=== PATIENT | male | born 1950 | race Caucasian/White ===

== ENCOUNTER → 2016-07-09 | Outpatient (CLI) | payer BC ==
[~2016-07-09] MED LIST: ALBUAER INH; BUPR-83 PO; BUPR100T13 PO; CHOL1000 PO; CYAN500T13 PO; FLUT0.15 NAE; IBUP-1459 PO; LATA0.5S OPB; MULTCAP33 PO; SYMIN160 INH; TRAM-10 PO; VITAMIN D PO; [UNRECOGNIZED DRUG - OTHER] PO
[2016-07-09 17:40] LABS: BASO % 1.5 %; BASO ABS # 0.11 K/uL (0-0.2); COMPLETE YES; EOS % 5.1 %; HEMATOCRIT 48.1 % (42-52); IG% 0.4 %; LYMPH % 32.6 %; LYMPH ABS # 2.38 K/uL (1.2-3.4); MEAN CELL VOLUME 94.5 fL (80-100); MEAN CORPUSCULAR HGB CONC 32.8 g/dl (32-36); MEAN PLATELET VOLUME 9.5 fL (7.4-10.4); MONO % 17.5 %; NEUT % 42.9 %; PLATELET COUNT 312 K/uL (130-400); RED BLOOD COUNT 5.09 M/uL (4.7-6.1); WHITE BLOOD COUNT 7.31 K/uL (4.8-10.8)
== END | disposition home or self-care (01) ==
LOC: C.LABPVFM 15:47
PROVIDERS: ATTEND Family Medicine
DX: R59.1 Generalized enlarged lymph nodes (principal)

== ENCOUNTER → 2016-07-15 | Outpatient (CLI) | payer BC ==
--- NOTE | 2016-07-15 14:23 | DIAGNOSTIC IMAGING REPORT ---
RIGHT NECK ULTRASONOGRAPHY CLINICAL HISTORY: R59.1 [id number] COMPARISON STUDY: No previous studies for comparison. FINDINGS: There is a 15 x 9 x 7 mm slightly hyperechoic ovoid nodule within the right lateral neck at the C1 level. This likely represents either a lipoma or lymph node. There are no other findings of significance. IMPRESSION: 15 x 9 x 7 mm lymph node versus lipoma within the right lateral neck at the C1 level Electronically signed by: Valerio Wright M.D. 07/15/2016 2:22 PM Dictated Date/Time: 07/15/2016 2:21 PM
== END | disposition home or self-care (01) ==
LOC: C.ULTR 13:54
PROVIDERS: ATTEND Family Medicine
DX: R59.1 Generalized enlarged lymph nodes (principal)

== ENCOUNTER → 2016-07-25 | Outpatient (CLI) | payer BC | END | disposition home or self-care (01) | LOC: C.PATH 07:59 | PROVIDERS: ATTEND Family Medicine | DX: D17.39 Benign lipomatous neoplasm of skin and subcutaneous tissue of other sites (principal) ==

== ENCOUNTER 2016-09-14 20:02 | Emergency (ER) | payer BC ==
[~2016-09-14] VITALS: Ht 170.2 cm; Wt 101.3 kg
[~2016-09-14 20:02] MED LIST changes: -BUPR100T13 PO; -CHOL1000 PO; -CYAN500T13 PO; -IBUP-1459 PO; -LATA0.5S OPB; -MULTCAP33 PO; -TRAM-10 PO
[2016-09-14 20:07] VITALS: Ht 170.2 cm; Wt 101.3 kg
[2016-09-14] MEDS ORDERED: MULTCAP33 PO (20:45)
[2016-09-14] MEDS ORDERED: TRAM-10 PO (20:45)
[2016-09-14] MEDS ORDERED: BUPR100T13 PO (20:45)
[2016-09-14] MEDS ORDERED: IBUP-1459 PO (20:45)
[2016-09-14] MEDS ORDERED: CYAN500T13 PO (20:45)
[2016-09-14] MEDS ORDERED: LATA0.5S OPB (20:45)
[2016-09-14] MEDS ORDERED: CHOL1000 PO (20:45)
--- NOTE | 2016-09-14 21:02 | DIAGNOSTIC IMAGING REPORT ---
RIGHT SHOULDER MIN 2 VIEWS ROUTINE CLINICAL HISTORY: Right shoulder pain s/p heavy lifting. COMPARISON: None FINDINGS: Alignment of the right shoulder is anatomic. There is no acute fracture. There is moderate osteoarthritis of the acromioclavicular joint and mild osteoarthritis of the glenohumeral joint. IMPRESSION: 1. No acute fracture or dislocation of the right shoulder. 2. Moderate osteoarthritis of the right acromioclavicular joint and mild osteoarthritis of the glenohumeral joint. Electronically signed by: Maurice Mcadams M.D. 09/14/2016 9:01 PM Dictated Date/Time: 09/14/2016 9:00 PM
--- NOTE | 2016-09-14 21:44 | EMERGENCY ROOM VISIT NOTE ---
History First contact with patient: 20:18 Chief Complaint: SHOULDER PAIN Stated Complaint: R SHOULDER PAIN History of Present Illness The patient is a 66 year old male who presents to the Emergency Room via private vehicle accompanied by with complaints of "right shoulder pain". The patient states that his right shoulder has been bothering him for the past 6 months, but notes that this past he manually removed 2 large loads of mulch. He states that later that evening his right shoulder pain worsen, and notes that it is progressively worsened since that time. He denies any chest pain, or worsening of his underlying shortness of breath. He is taken 2 ibuprofen tablets to total 800mg, and 10 mg of tramadol. He is also having one muscle relaxer with minimal relief of his pain. Review of Systems A complete 6-point Review of Systems was discussed with the patient, with pertinent positives and negatives listed in the History of Present Illness. All remaining Review of Systems questions can be considered negative unless otherwise specified. Past Medical/Surgical History Previous shoulder injury opposites side. Family History No pertinent family history at this time. Social History Smoking Status: Former Smoker Marital Status: Occupation Status: employed Current/Historical Medications Scheduled Budesonide/Formoterol Fumarate (Symbicort 160/4.5 Inhaler ), 2 PUFFS INH BID Bupropion Hcl (Wellbutrin), 100 MG PO DAILY Cholecalciferol (Vitamin D3), 1,000 INTER.UNIT PO DAILY Cyanocobalamin (Vitamin B12 500MCG), 1,000 MCG PO DAILY Fluticasone Propionate (Nasal) (Flonase Allergy Relief), 2 SPRAYS MACKENZIE QAM Latanoprost (Xalatan 0.005% Oph Nicole), 1 DROP OPB HS Multiple Vitamins W/ Minerals (Preservision Areds), 1 CAP PO DAILY Scheduled PRN Albuterol Sulfate (Proventil Hfa), 2 PUFFS INH Q4H PRN for Shortness of Breath Ibuprofen (Motrin), 400 MG PO Q6H PRN for Pain Tramadol (Ultram), 50 MG PO Q6H PRN for Severe Pain Allergies Coded Allergies: Acetaminophen (Unverified Allergy, Unknown, rash, 05/06/16) Azithromycin (Unverified Allergy, Unknown, rash, 05/06/16) Benzonatate (Unverified Allergy, Unknown, rash, 05/06/16) Clindamycin (Unverified Allergy, Unknown, rash, 05/06/16) Codeine (Unverified Allergy, Unknown, rash, 05/06/16) Hydrocodone (Unverified Allergy, Unknown, rash, 05/06/16) Levofloxacin (Unverified Allergy, Unknown, rash, 05/06/16) Montelukast (Unverified Allergy, Unknown, rash, 05/06/16) Omeprazole (Unverified Allergy, Unknown, rash, 05/06/16) Oxycodone (Unverified Allergy, Unknown, rash, 05/06/16) Paroxetine (Unverified Allergy, Unknown, rash, 05/06/16) Physical Exam Vital Signs Date Time Temp Pulse Resp B/P (MAP) Pulse Ox O2 Delivery O2 Flow Rate FiO2 09/14/16 21:52 37.1 94 18 130/93 93 09/14/16 20:07 37.6 103 18 146/88 93 Room Air Physical Exam VITAL SIGNS - Vital signs and nursing notes were reviewed. Patient is afebrile , hypertensive at 146/88, sodium tachycardic at a rate of 102 bpm, and is saturating on room air 93%. GENERAL -66-year-old male appearing his stated age who is in no acute distress. Communicates well with provider and answers questions appropriately. SKIN - Without rashes. Skin overlying the right shoulder is unremarkable. EXTREMITIES - No clubbing or peripheral cyanosis. No pretibial edema present. There is minimal tenderness to palpation overlying the right shoulder. Patient is not able to actively abduct his right shoulder secondary to pain. Passive extension of the right shoulder is tender/painful for the patient. +5/5 strength noted in UE/LE bilaterally. He is neurovascularly intact in the right upper extremity. Medical Decision & Procedures ER Provider Diagnostic Interpretation: RIGHT SHOULDER MIN 2 VIEWS ROUTINE CLINICAL HISTORY: Right shoulder pain s/p heavy lifting. COMPARISON: None FINDINGS: Alignment of the right shoulder is anatomic. There is no acute fracture. There is moderate osteoarthritis of the acromioclavicular joint and mild osteoarthritis of the glenohumeral joint. IMPRESSION: 1. No acute fracture or dislocation of the right shoulder. 2. Moderate osteoarthritis of the right acromioclavicular joint and mild osteoarthritis of the glenohumeral joint. Electronically signed by: Maurice Mcadams M.D. 09/14/2016 9:01 PM Dictated Date/Time: 09/14/2016 9:00 PM Medical Decision Patient was seen and evaluated as above. After obtaining a thorough history and physical examination the decision was made to obtain a radiograph the patient's right shoulder. This is the patient's right shoulder, and the pain is reproducible with passive and active range of motion. I suspect underlying rotator cuff injury. Radiograph results above and are found to be negative. I do not suspect any underlying emergent etiology. Patient denies chest pain, or changing in his current shortness of breath due to his COPD. I did offer the patient pain medication however he has many allergies. Unfortunately provide him any pain medication here and he is not allergic to orally. I do not believe that intravenous pain medication in this scenario is warranted. He did request stronger prescription of tramadol, however given his underlying other medications to include bupropion I did not want to induce seizure. Patient was in agreement, and agreed use [id number] meds. I reviewed his previous creatinine from 2011 which was found to be subtly bumped. He states that he has blood work done every 6 months and no one has stated anything regarding abnormalities. I did caution him on the amount of ibuprofen he is taking as it can cause ulcers and kidney damage. He is to follow up with orthopedics regarding his injury. I believe he is stable for outpatient management. He was also seen by my attending. He'll be placed in an arm sling, was educated upon worrisome symptoms in which to return, had questions prior to discharge, and was discharged home in good condition. In the evaluation and treatment of this patient, the following differential diagnoses were considered: Shoulder Contusion, Shoulder Fracture, Shoulder Dislocation, Thoracic Outlet Syndrome, Adhesive Capsulitis, Rotator Cuff Tear, Proximal Clavicle Head Fracture, Apical Pneumonia, Pneumothorax, Hemothorax, or TB. Impression Primary Impression: Right shoulder pain Departure Information Dispostion Home / Self-Care Condition GOOD Referrals Angel Arellano M.D. (PCP) Dustin Prakash, DO Patient Instructions My [facility] Additional Instructions You have been treated in the Emergency Department for Shoulder Pain. For pain control, you can use the following [id number] medicines (if >12 yo): - Regular strength (325mg/tab) Tylenol (acetaminophen) 2 tabs every 4-6 hours as needed. Do not exceed 12 tablets in a 24 hour period. Avoid taking more than 3 grams (3000 mg) of Tylenol per day. This includes any other sources of acetaminophen you may take on a regular basis. - Regular strength (200 mg/tab) Advil (ibuprofen) 1-2 tabs every 4-6 hours as needed. Do not exceed a dose of 3200 mg per day. Please be very careful taking this medication as it can cause ulcers in the stomach and hurt the kidneys. If this is a recent injury (<24 hrs), ice can be applied to the area of pain for the first 3 days to help decrease pain and inflammation. You have been provided the number for an Orthopaedic Surgeon. You should call this number as soon as possible to establish a follow-up visit from today's Emergency Department visit. Keep the shoulder brace/sling in place until evaluated by Orthopedics. Continue to perform range of motion exercises several times per day to help prevent the development of a "frozen shoulder". Return to the Emergency Department if your current symptoms worsen despite treatment course outlined above, or if you develop any of the following symptoms : intractable pain despite aforementioned treatment course or new onset of numbness or tingling of the arm. Please return to the emergency department with any new/concerning symptoms.
[2016-09-14 21:52] VITALS: BP 130/93; PULSE 94; TEMP 37.1; O2SAT 93
== END 2016-09-14 21:50 | disposition home or self-care (01) ==
LOC: C.EDB 20:05 → C.EDD 21:50
DX: M25.511 Pain in right shoulder (principal); I10 Essential (primary) hypertension; R00.0 Tachycardia, unspecified; Z79.899 Other long term (current) drug therapy; Z87.891 Personal history of nicotine dependence; X50.9XXA Other and unspecified overexertion or strenuous movements or postures, initial encounter; Y93.H2 Activity, gardening and landscaping

== ENCOUNTER → 2017-06-30 | Outpatient (CLI) | payer OTHER ==
[~2017-06-30] MED LIST changes: +ACET-1256 PO; -ALBUAER INH; -BUPR-83 PO; +BUPR100T13 PO; +CHOL1000 PO; +CYAN500T13 PO; +IBUP-1459 PO; +LATA0.5S OPB; +MULTCAP33 PO; +TRAM-10 PO; -VITAMIN D PO; -[UNRECOGNIZED DRUG - OTHER] PO
--- NOTE | 2017-06-30 14:06 | DIAGNOSTIC IMAGING REPORT ---
CHEST 2 VIEWS ROUTINE CLINICAL HISTORY: BRONCHITIS dyspnea COMPARISON STUDY: 07/10/2015 FINDINGS: Mild stable cardia megaly. Slight interstitial and peribronchial prominence of the mid to lower lung regions bilaterally. No evidence for consolidative infiltrate. IMPRESSION: Mild basilar bronchitis. The above report was generated using voice recognition software. It may contain grammatical, syntax or spelling errors. Electronically signed by: Gian Huitron M.D. 06/30/2017 2:04 PM Dictated Date/Time: 06/30/2017 2:03 PM
[2017-06-30 14:41] LABS: BASO % 0.7 %; BASO ABS # 0.06 K/uL (0-0.2); EOS % 4.6 %; EOS ABS # 0.38 K/uL (0-0.5); HEMOGLOBIN 15.5 g/dL (14.0-18.0); MEAN CORPUSCULAR HEMOGLOBIN 31.7 pg (25-34); MEAN CORPUSCULAR HGB CONC 34.4 g/dl (32-36); MONO % 14.7 %; MONO ABS # 1.21 K/uL (0.11-0.59); NEUT % 50.8 %; NEUT ABS # 4.16 K/uL (1.4-6.5); PLATELET COUNT 326 K/uL (130-400); RED CELL DISTRIBUTION WIDTH CV 13.4 % (11.5-14.5); RED CELL DISTRIBUTION WIDTH SD 44.7 fL (36.4-46.3); WHITE BLOOD COUNT 8.21 K/uL (4.8-10.8)
[2017-06-30 15:19] LABS: ALBUMIN 3.4 gm/dl (3.4-5.0); ALT/SGPT 75 U/L (12-78); AST/SGOT 34 U/L (15-37); BLOOD UREA NITROGEN 12 mg/dl (7-18); CALCIUM 8.3 mg/dl (8.5-10.1); CARBON DIOXIDE 27 mmol/L (21-32); CREATININE 1.09 mg/dl (0.60-1.40); GLUCOSE 91 mg/dl (70-99); SODIUM 137 mmol/L (136-145)
[2017-06-30 15:28] LABS: ALKALINE PHOSPHATASE 84 U/L (45-117); TOTAL PROTEIN 6.9 gm/dl (6.4-8.2)
== END | disposition home or self-care (01) ==
LOC: C.RAD1850 13:38
PROVIDERS: ATTEND Internal Medicine Pulmonary Disease
DX: J20.9 Acute bronchitis, unspecified (principal); J30.89 Other allergic rhinitis; J30.1 Allergic rhinitis due to pollen; J15.9 Unspecified bacterial pneumonia

== ENCOUNTER → 2017-07-04 | Outpatient (CLI) | payer OTHER ==
[2017-07-02 13:51] LABS: ALBUMIN 3.7 gm/dl (3.4-5.0); BLOOD UREA NITROGEN 12 mg/dl (7-18); CALCIUM 8.7 mg/dl (8.5-10.1); CARBON DIOXIDE 27 mmol/L (21-32); CREATININE 1.14 mg/dl (0.60-1.40); GLUCOSE 104 mg/dl (70-99); PHOSPHORUS 2.4 mg/dl (2.5-4.9); POTASSIUM 4.1 mmol/L (3.5-5.1); SODIUM 141 mmol/L (136-145)
[~2017-07-04] MED LIST changes: +OPTIRAY 320 IV PRN
--- NOTE | 2017-07-04 08:15 | DIAGNOSTIC IMAGING REPORT ---
CT ABD/PELVIS IV AND ORAL CONT CLINICAL HISTORY: CHANGE IN BOWEL HABIT COMPARISON STUDY: 08/01/2006 TECHNIQUE: Following the IV administration of 94 mL of Optiray-320, CT scan of the abdomen and pelvis was performed from the lung bases to the proximal femurs. Images are reviewed in the axial, sagittal, and coronal planes. IV contrast was administered without complication. A dose lowering technique was utilized adhering to the principles of ALARA. CT DOSE: 961.15 mGycm FINDINGS: Lower chest: On the superiormost images, there is partial visualization of prominent paraesophageal lymph nodes versus vascular structures. This unfortunately cannot be further characterized as the finding is not fully included on the study.. There are no pleural effusions. There is no basilar lung consolidation Liver: There is mild hepatic steatosis. No focal masses are visualized. The portal vein is patent. Gallbladder: Unremarkable. Spleen: Normal in size and attenuation. Pancreas: Unremarkable. Adrenal glands: Unremarkable. Kidneys: There is symmetric renal cortical enhancement. The kidneys are normal in size without hydronephrosis. Bowel: There are no transition zones indicate bowel obstruction. The appendix appears normal. There is no acute diverticulitis. Peritoneum: There is no intraperitoneal free air or abdominal ascites. Vasculature: The abdominal aorta is normal in course and caliber. Adenopathy: None. Pelvic viscera: The bladder, and pelvic viscera are unremarkable. Skeletal structures: No destructive osseous lesions are seen. IMPRESSION: 1. Mild hepatic steatosis 2. No acute findings within the abdomen or pelvis. No acute inflammatory changes. No evidence of bowel obstruction. No evidence of free air. 3. On the superiormost images, within the lower chest, there are prominent paraesophageal lymph nodes versus prominent blood vessels. Electronically signed by: Valerio Wright M.D. 07/04/2017 8:14 AM Dictated Date/Time: 07/04/2017 8:05 AM
== END ==
LOC: C.CTS 07:21
PROVIDERS: ATTEND Internal Medicine Gastroenterology
DX: R19.4 Change in bowel habit (principal)

== ENCOUNTER 2020-01-24 04:52 | Inpatient (IN) ==
[2020-01-24 05:35] LABS: Basophils # (auto) 0.06 K/uL (0-0.2); Basophils % (auto) 0.6 %; Eosinophils % (auto) 3.1 %; Hematocrit (blood only) 45.6 % (42-52); Hemoglobin 14.8 g/dL (14.0-18.0); Immature Granulocytes # (auto) 0.05 K/uL (0.00-0.02); Immature Granulocytes % (auto) 0.5 %; Lymphocytes # (auto) 1.24 K/uL (1.2-3.4); Lymphocytes % (auto) 12.6 %; Mean Corpuscular Hemoglobin 29.9 pg (25-34); Mean Corpuscular Hgb Conc 32.5 g/dL (32-36); Mean Corpuscular Volume 92.1 fL (80-100); Mean Platelet Volume 9.4 fL (7.4-10.4); Monocytes # (auto) 1.52 K/uL (0.11-0.59); Monocytes % (auto) 15.5 %; Neutrophils # (auto) 6.65 K/uL (1.4-6.5); Neutrophils % (auto) 67.7 %; Platelet Count 251 K/uL (130-400); RDW Coefficient of Variation 15.3 % (11.5-14.5); RDW Standard Deviation 51.7 fL (36.4-46.3); Red Blood Count 4.95 M/uL (4.7-6.1); White Blood Count 9.82 K/uL (4.8-10.8)
[2020-01-24 05:41] LABS: Alanine Aminotransferase 28 U/L (12-78); Albumin Level 3.5 gm/dl (3.4-5.0); Aspartate Aminotransferase 18 U/L (15-37); BUN Creatinine Ratio 15.8 (10-20); Blood Urea Nitrogen 18 mg/dl (7-18); Calcium 8.9 mg/dl (8.5-10.1); Carbon Dioxide 26 mmol/L (21-32); Chloride 107 mmol/L (98-107); Creatinine Clr Calc Pharmacy 67.9 ml/min; Est GFR (African American) 76.4; Glucose 124 mg/dl (70-99); Lipase 88 U/L (73-393); Sodium 140 mmol/L (136-145)
[2020-01-24 05:46] LABS: Albumin Globulin Ratio 0.9 (0.9-2); Alkaline Phosphatase 104 U/L (45-117); Bilirubin,Total 0.6 mg/dl (0.2-1); Globulin 3.8 gm/dl (2.5-4.0); NT Pro B Type Natriuretic Pept 1417 pg/ml (0-900); Total Protein 7.3 gm/dl (6.4-8.2); Troponin I < 0.015 ng/ml (0-0.045)
[2020-01-24 06:07] LABS: Partial Thromboplastin Ratio 1.2; Partial Thromboplastin Time 32.1 Seconds (21.0-31.0); Prothrombin Time 10.9 Seconds (9.0-12.0)
[2020-01-24 06:11] LABS: D Dimer 3180 ug/L FEU (0-500)
[2020-01-24] MEDS ORDERED: OPTIRAY 320 125ml IV ONE (07:11)
--- NOTE | 2020-01-24 07:35 | CT Scan Report ---
CT ANGIOGRAM OF THE CHEST CLINICAL HISTORY: Chest pain and increasing shortness of breath. Possible acute pulmonary embolism. COMPARISON STUDY: Chest x-ray dated 01/24/2020 TECHNIQUE: Following the IV administration of 120 mL of Optiray-320, CT angiogram of the thorax was p erformed from the thoracic inlet to the lung bases utilizing the pulmonary embolus protocol. Images a re reviewed in the axial, sagittal, and coronal planes. IV contrast was administered without complica tion. MIP imaging was performed. A dose lowering technique was utilized adhering to the principles o f ALARA. CT DOSE: 700.75 mGy.cm FINDINGS: There are multiple borderline enlarged mediastinal lymph nodes. There was no evidence of thoracic aortic dilatation. There are moderately extensive bilateral pulmonary artery filling defects, indicative of acute bilate ral pulmonary embolism. This involves all lobes. There is suspected mild right ventricular strain No pleural effusions are visualized. There are right basilar and middle lobe atelectatic changes. IMPRESSION: 1. Moderately extensive acute bilateral pulmonary embolism with evidence of mild right ventricular st rain ACT 112: Negative or not required by law. Electronically signed by: Valerio Wright M.D. 01/24/2020 7:33 AM
--- NOTE | 2020-01-24 07:48 | XRay Report ---
XR chest 1V portable CLINICAL HISTORY: Atypical chest pain COMPARISON STUDY: 01/17/2020 FINDINGS: The heart is the upper limits of normal in size. There is mild right mediastinal fullness. There is aortic tortuosity/ectasia. There are bibasilar opacities likely atelectatic although an infe ctious/inflammatory process could appear similar. There is mild prominence of central pulmonary arter ies. Pulmonary arterial hypertension cannot be excluded.[ IMPRESSION: 1. Prominence of central pulmonary arteries. This could indicate pulmonary arterial hypertension 2. Mild mediastinal fullness 3. Basilar opacities statistically atelectatic ACT 112: Negative or not required by law. Electronically signed by: Valerio Wright M.D. 01/24/2020 7:47 AM
[2020-01-24] MEDS ORDERED: HEPARIN SOD 5,000 UNIT/0.5 ML VIAL ONE (08:01)
--- NOTE | 2020-01-24 08:09 | Emergency Department Note ---
Impression & Plan Pulmonary emboli ED Provider Note NAME: RADHA NIELSEN AGE: 69 SEX: M ARRIVES VIA: Ambulance INFORMANT: Patient ED PROVIDER(S): Carolina Quintanilla DO CHIEF COMPLAINT: Shortness of breath PLAN: Disposition: Admitted to the [facility] service Condition: Guarded MEDICAL DECISION MAKING: This is a 69-year-old male patient who presents to the emergency department with increasing shortness of breath and right-sided chest pain. The patient noted this right-sided chest pain that woke him from sleep and radiated into his neck. He had increasing orthopnea over the past couple of nights. He had been taking Lasix over the past 2 weeks but noted that his exertional shortness of breath was worsening. CT scan of the chest shows bilateral pulmonary emboli. Patient was bolused with IV heparin and started on heparin drip. The case was discussed with Dr. Pratt from the [facility] group. Triage Nursing notes reviewed and agree with them. Additional history obtained from patient's Prior medical records reviewed Vital Signs: reviewed and unremarkable Differential diagnosis: Cardiac ischemia, COPD exacerbation, CHF, PE, aortic dissection ER treatment provided: IV heparin bolus, IV heparin drip Diagnostics interpreted by me: ECG: Sinus tachycardia at a rate of [address] segment elevation or signs of ischemia. There is no ectopy Cardiac Monitoring: Normal sinus rhythm at a rate of 99 Laboratory studies: See below Imaging studies: Chest x-ray: Bibasilar atelectasis but no other pulmonary consolidations or infiltrates as per my interpretation CT ANGIOGRAM OF THE CHEST CLINICAL HISTORY: Chest pain and increasing shortness of breath. Possible acute pulmonary embolism. COMPARISON STUDY: Chest x-ray dated 01/24/2020 TECHNIQUE: Following the IV administration of 120 mL of Optiray-320, CT angiogram of the thorax was performed from the thoracic inlet to the lung bases utilizing the pulmonary embolus protocol. Images are reviewed in the axial, sagittal, and coronal planes. IV contrast was administered without complication. MIP imaging was performed. A dose lowering technique was utilized adhering to the principles of ALARA. CT DOSE: 700.75 mGy.cm FINDINGS: There are multiple borderline enlarged mediastinal lymph nodes. There was no evidence of thoracic aortic dilatation. There are moderately extensive bilateral pulmonary artery filling defects, indicative of acute bilateral pulmonary embolism. This involves all lobes. There is suspected mild right ventricular strain No pleural effusions are visualized. There are right basilar and middle lobe atelectatic changes. IMPRESSION: 1. Moderately extensive acute bilateral pulmonary embolism with evidence of mild right ventricular strain HPI: 69/M arrives for evaluation of shortness of breath. This is a 69-year-old male who presents to the emergency department with worsening shortness of breath and right-sided chest pain. The patient states that he has had some increasing exertional shortness of breath over the past 2 weeks. He was told to take his Lasix daily. He felt that this was originally helping but then he was not convinced that he was improving. Unfortunately, tonight, the patient awoke from sleep with some right-sided chest pain that seem to radiate into his neck and he developed significant orthopnea. ROS: See above HPI for pertinent positives & negatives. A total of 10 systems reviewed and were otherwise negative. PAST MEDICAL HISTORY:See Below PAST SURGICAL HISTORY:See Below FAMILY HISTORY:See Below SOCIAL HISTORY:See Below HOME MEDICATIONS:See list ALLERGIES:See list VITALS:See Below PHYSICAL EXAMINATION: HEENT: Head - normocephalic and atraumatic Pupils are equal, round, and reactive to light. Extraocular eye muscles are intact, and sclera are anicteric. Nose - moist nasal mucosa without discharge. Mouth - moist buccal mucosa. Oropharynx is nonerythematous and there is no tonsillar exudate or edema noted. Neck: Supple; no JVD, nuchal rigidity, cervical lymphadenopathy, or auscultated bruits. Heart: Regular rate and rhythm. There is a normal S1 and S2 with no murmurs, clicks, or gallops appreciated. Lungs: Diminished breath sounds in all lung delcid Abdomen: Soft, completely nontender, nondistended, with good bowel sounds. There are no palpable pulsatile masses or hepatosplenomegaly. There is no guarding, rigidity, or rebound noted. Extremities: Trace pedal edema bilaterally Skin: warm and dry with good turgor and no rashes. ED COURSE: Times/Reassessments: 0500: The patient was evaluated in room C9. A complete history and physical was performed. Laboratory studies were drawn as above. An order was placed for continuous cardiac monitoring. The patient was in a normal sinus rhythm at a rate of 99. A twelve-lead EKG was performed. 2 saturations were only 90% on room air. Patient was placed on supplemental oxygen. A portable chest x-ray was obtained as described above. D-dimer was significantly elevated so patient went for CT scan of the chest to rule out PE. Rectal exam was performed and was heme-negative. The patient was bolused with IV heparin and started on a heparin drip. Vital signs remained stable. I discussed the case with the [facility] hospitalist group and they will evaluate for further management. 0740:I reviewed all the results with the patient and his . I answered multiple questions for them. I have personally spent greater than 45minutes of critical care time in the direct management of this patient. This includes bedside care, interpretation of diagnostic studies, and testing, discussion with consultants, patient, and family members, and other required patient management activities. This 45 minutes is in excess of all separately billable procedures. Carolina Quintanilla DO Past Med/Surg History Medical History (Updated 01/25/20 @ 13:37 by Carolina Quintanilla DO) Agent orange exposure Arthralgia Arthralgia Cervical facet syndrome Glaucoma Migraines Radicular pain of lower extremity Tubular adenoma of colon Surgical History H/O lumbosacral spine surgery Family History Aunt Myocardial infarction Son Allergic rhinitis Denies family history of Ovarian cancer Prostate cancer Diabetes Coronary heart disease Depression Breast cancer Colorectal cancer Social History Smoking Status: Never smoker Hx Alcohol Use: No Hx Substance Use: No Preferred Language: Albanian Communication Ability: Effective Visual Impairment: Limited Hearing Ability: Normal 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 Operator Required: No Beliefs That Will Affect Care: None marital status: Current Living Situation: Spouse current occupational status: retired Other Information That Helps Us Care for You: No Feels Safe at Home: Yes Safety Concerns: Feels Safe At This Time Dental Care, Regularly: No Seatbelt Use: always Assistive Devices: Oxygen - Continuous Allergies Allergies Allergy/AdvReac Type Severity Reaction Status Date / Time benzonatate Allergy Unknown rash Verified 01/24/20 06:29 clindamycin Allergy Unknown rash Verified 01/24/20 06:29 codeine Allergy Unknown rash Verified 01/24/20 06:29 garlic Allergy Unknown Unknown Verified 01/24/20 06:29 grass pollen Allergy Unknown Unknown Verified 01/24/20 06:29 hydrocodone Allergy Unknown rash Verified 01/24/20 06:29 levofloxacin Allergy Unknown rash Verified 01/24/20 06:29 milk Allergy Unknown Unknown Verified 01/24/20 06:29 mold Allergy Unknown Unknown Verified 01/24/20 06:29 montelukast [From Singulair] Allergy Unknown Unknown Unverified 01/24/20 06:29 omeprazole Allergy Unknown rash Verified 01/24/20 06:29 oxycodone Allergy Unknown rash Verified 01/24/20 06:29 paroxetine Allergy Unknown rash Verified 01/24/20 06:29 tree and shrub pollen Allergy Unknown Unknown Verified 01/24/20 06:29 azithromycin Allergy Rash Verified 01/24/20 06:29 Home Meds Home Medications Medication Instructions Recorded Confirmed vitamin B complex 1 tab PO DAILY 09/25/18 01/24/20 inhalat.spacing dev,large mask #1 ea 11/02/18 01/03/20 allopurinol 200 mg PO DAILY 01/24/20 01/24/20 furosemide 20 mg PO DAILY 01/24/20 01/24/20 Previous Rx's Medication Instructions Recorded albuterol sulfate 90 mcg/actuation 2 puffs INHALATION Q4H PRN #6.7 gm 10/08/18 aerosol inhaler budesonide-formoterol HFA 160 2 puffs INH BID #6 gm 10/08/18 mcg-4.5 mcg/actuation aerosol inhaler bupropion HCl 100 mg tablet,12 hr 100 mg PO DAILY #90 ea 10/08/18 sustained-release cholecalciferol (vitamin D3) 25 1,000 units PO DAILY #90 cap 10/08/18 mcg (1,000 unit) capsule fluticasone propionate 50 2 sprays INTNAS DAILY #9.9 gm 10/08/18 mcg/actuation nasal spray,suspension latanoprost 0.005 % eye drops 1 drops OP QPM #2.5 ml 10/08/18 triamcinolone acetonide 0.1 % 1 appln TOP BID #15 gm 11/09/18 topical ointment lisinopril 10 mg tablet 10 mg PO DAILY #30 tab 09/06/19 tramadol 50 mg tablet 50 mg PO QID PRN #120 tab 11/30/19 naproxen sodium 550 mg tablet 550 mg PO BID #60 tab 12/08/19 rivaroxaban [Xarelto DVT-PE Treat 1 ea PO UD #51 ea 01/25/20 30d Start] Results & Data (ED) Vital Signs Vital Signs - 24 hr 01/24/20 04:58 01/24/20 05:30 01/24/20 06:01 Temperature 36.7 C Temperature Source Oral Pulse Rate 112 H 105 H 100 H Pulse Rate from SpO2 Sensor 105 H 99 H Respiratory Rate 18 19 18 Blood Pressure 143/90 H 140/103 H 132/82 Blood Pressure Mean 107 119 100 Pulse Oximetry 90 95 96 Oxygen Delivery Method Nasal Cannula Nasal Cannula Nasal Cannula Oxygen Flow Rate 0 2 2 Sepsis Recent Fever Within 48 Hours No Sepsis New/Unexplained Change in Mental Status No Sepsis Action Taken by Nursing No Action Required Oxygen Flow Rate - Titration 2 Pulse Oximetry Post Tiitration 95 01/24/20 06:30 Temperature Temperature Source Pulse Rate 99 H Pulse Rate from SpO2 Sensor 100 H Respiratory Rate 17 Blood Pressure 108/87 Blood Pressure Mean 99 Pulse Oximetry 95 Oxygen Delivery Method Nasal Cannula Oxygen Flow Rate 2 Sepsis Recent Fever Within 48 Hours Sepsis New/Unexplained Change in Mental Status Sepsis Action Taken by Nursing Oxygen Flow Rate - Titration Pulse Oximetry Post Tiitration Laboratory Data Result diagrams: 01/25/20 07:52 01/25/20 07:52 Lab Results 01/24/20 01/24/20 01/24/20 Range/Units 04:20 04:20 04:20 WBC 9.82 (4.8-10.8) K/uL RBC 4.95 (4.7-6.1) M/uL Hgb 14.8 (14.0-18.0) g/dL Hct 45.6 (42-52) % MCV 92.1 (80-100) fL MCH 29.9 (25-34) pg MCHC 32.5 (32-36) g/dL RDW Std Deviation 51.7 H (36.4-46.3) fL RDW Coeff of Miguel 15.3 H (11.5-14.5) % Plt Count 251 (130-400) K/uL MPV 9.4 (7.4-10.4) fL Immature Gran % (Auto) 0.5 % Neut % (Auto) 67.7 % Lymph % (Auto) 12.6 % [place] % (Auto) 15.5 % Eos % (Auto) 3.1 % Baso % (Auto) 0.6 % Neut # (Auto) 6.65 H (1.4-6.5) K/uL Lymph # (Auto) 1.24 (1.2-3.4) K/uL [place] # (Auto) 1.52 H (0.11-0.59) K/uL Eos # (Auto) 0.30 (0-0.5) K/uL Baso # (Auto) 0.06 (0-0.2) K/uL Immature Gran # (Auto) 0.05 H (0.00-0.02) K/uL PT 10.9 (9.0-12.0) Seconds INR 1.0 (0.9-1.1) APTT 32.1 H (21.0-31.0) Seconds PTT Ratio 1.2 D-Dimer 3180 H* (0-500) ug/L FEU Sodium 140 (136-145) mmol/L Potassium 4.0 (3.5-5.1) mmol/L Chloride 107 (98-107) mmol/L Carbon Dioxide 26 (21-32) mmol/L Anion Gap 7.0 (3-11) BUN 18 (7-18) mg/dl Creatinine 1.13 (0.6-1.4) mg/dl Est Cr Clr Drug Dosing 67.9 ml/min Est GFR ( Amer) 76.4 Est GFR (Non-Af Amer) 66.0 BUN/Creatinine Ratio 15.8 (10-20) Glucose 124 H (70-99) mg/dl Calcium 8.9 (8.5-10.1) mg/dl Total Bilirubin 0.6 (0.2-1) mg/dl AST 18 (15-37) U/L ALT 28 (12-78) U/L Alkaline Phosphatase 104 (45-117) U/L Troponin I < 0.015 (0-0.045) ng/ml NT-Pro-B Natriuret Pep 1417 H (0-900) pg/ml Total Protein 7.3 (6.4-8.2) gm/dl Albumin 3.5 (3.4-5.0) gm/dl Globulin 3.8 (2.5-4.0) gm/dl Albumin/Globulin Ratio 0.9 (0.9-2) Lipase 88 (73-393) U/L Administered Medications Acetaminophen (Acetaminophen 325 Mg Tab) 650 mg PO Q4H PRN PRN Reason: Moderate Pain Stop: 02/23/20 10:29 Last Admin: 01/24/20 15:29 Dose: 650 mg Documented by: [id number] Allopurinol (Allopurinol 100 Mg Tab) 200 mg PO DAILY ELLY Stop: 02/24/20 08:59 Last Admin: 01/25/20 08:04 Dose: 200 mg Documented by: [id number] Bupropion HCl (Bupropion Sr 100 Mg Tabcr) 100 mg PO DAILY ELLY Stop: 02/24/20 08:59 Last Admin: 01/25/20 08:04 Dose: 100 mg Documented by: [id number] Fluticasone Propionate (Fluticasone Propionate Na Spr 16 Gm Btl) 2 sprays NA DAILY ELLY Stop: 02/24/20 08:59 Last Admin: 01/25/20 08:01 Dose: 2 sprays Documented by: [id number] Fluticasone/Vilanterol (Fluticasone/Vilanterol 200/25mcg 14 Puffs/Inhaler) 1 puffs INH DAILY [facility]; Protocol Stop: 02/24/20 08:59 Last Admin: 01/25/20 08:00 Dose: 1 puffs Documented by: [id number] Furosemide (Furosemide 20 Mg Tab) 20 mg PO DAILY ELLY Stop: 02/24/20 08:59 Last Admin: 01/25/20 08:03 Dose: 20 mg Documented by: [id number] Latanoprost (Latanoprost 0.005% Op Soln 2.5 Ml Btl) 1 drops OP QPM ELLY Stop: 02/23/20 20:59 Last Admin: 01/24/20 20:34 Dose: 1 drops Documented by: [id number] Lisinopril (Lisinopril 10 Mg Tab) 10 mg PO DAILY ELLY Stop: 02/24/20 08:59 Last Admin: 01/25/20 08:03 Dose: 10 mg Documented by: [id number] Naproxen (Naproxen 250 Mg Tab) 500 mg PO BID ELLY Stop: 02/23/20 20:59 Last Admin: 01/25/20 08:03 Dose: 500 mg Documented by: [id number] Admin: 01/24/20 20:35 Dose: 500 mg Documented by: [id number] Rivaroxaban (Rivaroxaban 15 Mg Tab) 15 mg PO BID [facility] Stop: 02/14/20 23:59 Last Admin: 01/25/20 12:20 Dose: 15 mg Documented by: [id number] Tramadol HCl (Tramadol Hcl 50 Mg Tablet) 50 mg PO QID PRN PRN Reason: pain Stop: 02/23/20 10:29 Last Admin: 01/25/20 10:40 Dose: 50 mg Documented by: [id number] Admin: 01/24/20 20:34 Dose: 50 mg Documented by: [id number] Triamcinolone Acetonide (Triamcinolone Acet 0.1% Oint 15 Gm Tube) 1 appln TOP BID [facility] Stop: 02/23/20 20:59 Last Admin: 01/25/20 08:07 Dose: Not Given Documented by: [id number] Admin: 01/24/20 20:35 Dose: Not Given Documented by: [id number] Vitamin B Complex (Vitamin B Complex Tab) 1 tab PO DAILY [facility] Stop: 02/24/20 08:59 Last Admin: 01/25/20 08:03 Dose: 1 tab Documented by: [id number] Vitamin D (Cholecalciferol 1,000 Units 25 Mcg Tab) 1,000 units PO DAILY [facility] Stop: 02/24/20 08:59 Last Admin: 01/25/20 08:03 Dose: 1,000 units Documented by: [id number] Discontinued Medications Heparin Sodium (Porcine) (Heparin Sod 5,000 Unit/0.5 Ml Vial) Confirm Administered Dose 5,000 units .ROUTE .STK-MED ONE Stop: 01/24/20 08:02 Last Admin: 01/24/20 08:15 Dose: 5,000 units Documented by: [id number] Heparin Sodium/Dextrose (Heparin Iv Standard With Bolus) 1 ea IV NOW STA; Protocol Stop: 01/24/20 07:49 Last Admin: 01/24/20 11:17 Dose: Not Given Documented by: [id number] Heparin Sodium/Dextrose (Heparin Sodium/Dextrose) 25,000 units in 500 mls @ 28 mls/hr IV .[id number] ELLY; Protocol Stop: 02/23/20 07:59 Last Titration: 01/25/20 11:47 Dose: 0 units/hr, 0 mls/hr Documented by: [id number] Cosigned by: [id number] Titration: 01/25/20 09:05 Dose: 1,150 units/hr, 23 mls/hr Documented by: [id number] Cosigned by: [id number] Titration: 01/25/20 06:57 Dose: 1,250 units/hr, 25 mls/hr Documented by: [id number] Cosigned by: [id number] Admin: 01/25/20 03:29 Dose: 1,250 units/hr, 25 mls/hr Documented by: [id number] Cosigned by: [id number] Titration: 01/25/20 03:29 Dose: 1,250 units/hr, 25 mls/hr Documented by: [id number] Cosigned by: [id number] Titration: 01/24/20 23:21 Dose: 1,250 units/hr, 25 mls/hr Documented by: [id number] Cosigned by: [id number] Titration: 01/24/20 18:49 Dose: 1,250 units/hr, 25 mls/hr Documented by: [id number] Cosigned by: [id number] Titration: 01/24/20 15:51 Dose: 1,250 units/hr, 25 mls/hr Documented by: [id number] Cosigned by: [id number] Titration: 01/24/20 14:51 Dose: 0 units/hr, 0 mls/hr Documented by: [id number] Cosigned by: [id number] Admin: 01/24/20 08:14 Dose: 1,400 units/hr, 28 mls/hr Documented by: [id number] Cosigned by: [id number] Ioversol (Optiray 320 125ml) 120 ml IV ONCE ONE Stop: 01/24/20 07:12 Last Admin: 01/24/20 07:12 Dose: 120 ml Documented by: [id number] Miscellaneous (Heparin Drip: Stop Order) 1 ea N/A 1145 ONE Stop: 01/25/20 11:46 Last Admin: 01/25/20 12:20 Dose: 1 ea Documented by: [id number] Discharge Plan Visit Data Chief Complaint: Shortness of Breath/Dyspnea Stated Complaint: SHORTNESS OF BREATH ED Provider: Carolina Quintanilla Discharge Problem: Pulmonary emboli Patient Disposition: Admitted As Inpatient Condition: Good Discharge Instructions Interventions: ED Discharge Assessment Last Done: 01/24/20 09:59 Discharge Problem: Pulmonary emboli Qualifiers: Pulmonary embolism type: multiple subsegmental (without acute cor pulmonale) Qualified Code(s): I26.94 - Multiple subsegmental pulmonary emboli without acute cor pulmonale
[2020-01-24] MEDS: HEPARIN SODIUM/DEXTROSE 25,000 UNITS/500 ML BAG IV SCH (08:14)
--- NOTE | 2020-01-24 09:04 | History & Physical Report ---
Date of Service January 24, 2020 Assessment & Plan (1) Pulmonary embolism, bilateral: -Admit to telemetry -Continue heparin drip which has been started in the ER -CTA reviewed showing moderately extensive acute bilateral pulmonary embolism in all lobes, suspected mild right ventricular strain, no pleural effusions, multiple borderline enlarged mediastinal lymph nodes -Check venous Doppler bilateral LE -2D echo -Likely can transition to DOAC, [facility] a [facility], to assist and give free medication card for the first 30 days. -Currently requiring 2 L O2, sats =97%, will need o2 eval prior to DC (2) Hypertension: -Continue lisinopril 10 mg, Lasix 20 mg daily (3) Hyperlipidemia: -Patient is not on statin therapy -Check lipid panel with a.m. labs (4) Peripheral neuropathy: -History of such (5) PTSD (post-traumatic stress disorder): -History of such, continue Wellbutrin (6) Migraines: -History of such, none currently (7) Arthritis: - patient reports being evaluated for history such as rheumatoid arthritis by his PCP with chronic arthritic complaints of bilateral hips bilateral knees bilateral ankles and wrists (8) Asthma: -Had used albuterol inhaler more recently due to shortness of breath secondary to above but did not improve his symptoms, can continue inhaler as needed (9) DVT prophylaxis: -Heparin drip CODE: Full code Dispo: From home, likely to remain in the hospital x 1-2 days History of Present Illness Primary Care Provider: Urban Chavira, This is a 69-year-old male with past medical history of HTN, HLD, PTSD, migraine, arthritis, asthma, low back pain who presents with progressive worsening shortness of breath, which has been going on for some time now. He has been following with PCP and it was thought that he had some component of CHF and therefore were titrating his diuretics. He noticed his shortness of breath began 2 weeks ago. To his knowledge he cannot recall any trauma, secondary trauma specifically or prolonged travel. Denies any pain or tenderness in his calf muscle bilaterally. He presents to the ER due to worsening breathing and was found to be tachycardic. D-dimer was elevated. On CTA found to have bilateral PEs. Allergies Allergy/AdvReac Type Severity Reaction Status Date / Time benzonatate Allergy Unknown rash Verified 01/24/20 06:29 clindamycin Allergy Unknown rash Verified 01/24/20 06:29 codeine Allergy Unknown rash Verified 01/24/20 06:29 garlic Allergy Unknown Unknown Verified 01/24/20 06:29 grass pollen Allergy Unknown Unknown Verified 01/24/20 06:29 hydrocodone Allergy Unknown rash Verified 01/24/20 06:29 levofloxacin Allergy Unknown rash Verified 01/24/20 06:29 milk Allergy Unknown Unknown Verified 01/24/20 06:29 mold Allergy Unknown Unknown Verified 01/24/20 06:29 montelukast [From Singulair] Allergy Unknown Unknown Unverified 01/24/20 06:29 omeprazole Allergy Unknown rash Verified 01/24/20 06:29 oxycodone Allergy Unknown rash Verified 01/24/20 06:29 paroxetine Allergy Unknown rash Verified 01/24/20 06:29 tree and shrub pollen Allergy Unknown Unknown Verified 01/24/20 06:29 azithromycin Allergy Rash Verified 01/24/20 06:29 Home Medications Home Medications Medication Instructions Recorded Confirmed Type vitamin B complex 1 tab PO DAILY 09/25/18 01/24/20 History albuterol sulfate 90 mcg/actuation 2 puffs INHALATION Q4H PRN #6.7 gm 10/08/18 01/24/20 Rx aerosol inhaler budesonide-formoterol HFA 160 2 puffs INH BID #6 gm 10/08/18 01/24/20 Rx mcg-4.5 mcg/actuation aerosol inhaler bupropion HCl 100 mg tablet,12 hr 100 mg PO DAILY #90 ea 10/08/18 01/24/20 Rx sustained-release cholecalciferol (vitamin D3) 25 1,000 units PO DAILY #90 cap 10/08/18 01/24/20 Rx mcg (1,000 unit) capsule fluticasone propionate 50 2 sprays INTNAS DAILY #9.9 gm 10/08/18 01/24/20 Rx mcg/actuation nasal spray,suspension latanoprost 0.005 % eye drops 1 drops OP QPM #2.5 ml 10/08/18 01/24/20 Rx inhalat.spacing dev,large mask #1 ea 11/02/18 01/03/20 History triamcinolone acetonide 0.1 % 1 appln TOP BID #15 gm 11/09/18 01/24/20 Rx topical ointment lisinopril 10 mg tablet 10 mg PO DAILY #30 tab 09/06/19 01/24/20 Rx tramadol 50 mg tablet 50 mg PO QID PRN #120 tab 11/30/19 01/24/20 Rx naproxen sodium 550 mg tablet 550 mg PO BID #60 tab 12/08/19 01/24/20 Rx allopurinol 200 mg PO DAILY 01/24/20 01/24/20 History furosemide 20 mg PO DAILY 01/24/20 01/24/20 History Past Med/Surg History Medical History (Updated 01/24/20 @ 10:12 by Veronica Bernard PA-C) Agent orange exposure Arthralgia Arthralgia Cervical facet syndrome Glaucoma Migraines Radicular pain of lower extremity Tubular adenoma of colon Surgical History H/O lumbosacral spine surgery Family History Aunt Myocardial infarction Son Allergic rhinitis Denies family history of Ovarian cancer Prostate cancer Diabetes Coronary heart disease Depression Breast cancer Colorectal cancer Social History Smoking Status: Never smoker Hx Alcohol Use: No Hx Substance Use: No Preferred Language: Vietnamese Communication Ability: Effective Visual Impairment: Limited Hearing Ability: Normal Lathe Puller Required: No Beliefs That Will Affect Care: None marital status: Current Living Situation: Spouse current occupational status: retired Other Information That Helps Us Care for You: No Feels Safe at Home: Yes Safety Concerns: Feels Safe At This Time Dental Care, Regularly: No Seatbelt Use: always Assistive Devices: Cane, Denture - Upper and Denture - Lower Review of Systems Review of Systems: Constitutional: No fever, sweats or chills Eyes: No diplopia, no worsening or blurred vision ENT: normal hearing, no trouble swallowing Respiratory: + As per HPI. No cough, sputum, dyspnea at rest, + dyspnea on exertion, + pain with deep breaths Cardiovascular: No chest pain, tightness or palpitations Abdomen: No pain, nausea, vomiting, diarrhea or constipation Musculoskeletal: No joint pain, calf pain, swelling Neurologic: No weakness, numbness/tingling, or balance problems Psychiatric: No anxiety or depression Skin: No rash or itch Physical Exam Physical Exam: General: awake, alert, no apparent distress Head: Normocephalic, atraumatic ENT: PERRL, EOMI, no pharyngeal exudate, mucous membranes moist Chest: Clear to auscultation, on 2L via NC, O2 sats 97%, no adventitious breath sounds, + pain with taking deep breaths Cardiac: + Sinus tach, heart rate in mid 90s at bedside, no murmur, no JVD, normal peripheral pulses, good capillary refill Abdominal: NABS x 4 quadrants, soft, nondistended, nontender to palpation, no rebound or guarding Extremities: Normal inspection, no peripheral edema or erythema, calfs nontender to palpation Psych: Normal mood and affect Neuro: AAO x 3, strength intact bilaterally and rated 5/5, no motor deficits, speech is clear, no peripheral sensory deficits Results & Data Results & Data ([facility]) Vital Signs (Past 12 Hours) Vital Signs Temp Pulse Resp BP Pulse Ox 01/24/20 06:30 99 H 17 108/87 95 01/24/20 06:01 100 H 18 132/82 96 01/24/20 05:30 105 H 19 140/103 H 95 01/24/20 04:58 36.7 C 112 H 18 143/90 H [address] ANGIOGRAM OF THE CHEST CLINICAL HISTORY: Chest pain and increasing shortness of breath. Possible acute pulmonary embolism. COMPARISON STUDY: Chest x-ray dated 01/24/2020 TECHNIQUE: Following the IV administration of 120 mL of Optiray-320, CT angiogram of the thorax was performed from the thoracic inlet to the lung bases utilizing the pulmonary embolus protocol. Images are reviewed in the axial, sagittal, and coronal planes. IV contrast was administered without complication. MIP imaging was performed. A dose lowering technique was utilized adhering to the principles of ALARA. CT DOSE: 700.75 mGy.cm FINDINGS: There are multiple borderline enlarged mediastinal lymph nodes. There was no evidence of thoracic aortic dilatation. There are moderately extensive bilateral pulmonary artery filling defects, indicative of acute bilateral pulmonary embolism. This involves all lobes. There is suspected mild right ventricular strain No pleural effusions are visualized. There are right basilar and middle lobe atelectatic changes. IMPRESSION: 1. Moderately extensive acute bilateral pulmonary embolism with evidence of mild right ventricular strain XR chest 1V portable CLINICAL HISTORY: Atypical chest pain COMPARISON STUDY: 01/17/2020 FINDINGS: The heart is the upper limits of normal in size. There is mild right mediastinal fullness. There is aortic tortuosity/ectasia. There are bibasilar opacities likely atelectatic although an infectious/inflammatory process could appear similar. There is mild prominence of central pulmonary arteries. Pulmonary arterial hypertension cannot be excluded.[ IMPRESSION: 1. Prominence of central pulmonary arteries. This could indicate pulmonary arterial hypertension 2. Mild mediastinal fullness 3. Basilar opacities statistically atelectatic ECG Additional Comments: 24-JAN-2020 04:58:22 [facility]-EDSTAT ROUTINE RETRIEVAL Sinus tachycardia Cannot rule out Anterior infarct , age undetermined Abnormal ECG No previous ECGs available 25mm/s 10mm/mV 150Hz 9.0.9 12SL 241 KATH: 11 Referred by: REFERRED SELF Unconfirmed Vent. rate 111 BPM ND interval 158 ms QRS duration 70 ms QT/QTc 328/446 ms P-R-T axes 40 16 9 Code Status & VTE Plan Code Status Full code-discussed with patient at bedside Supervising Physician Co-Signing Physician Notes Patient seen and examined with Evy PATTON. I agree with her exam findings, review of systems, assessment and plan. I personally reviewed the lab work and imaging as well. patient with two weeks of dyspnea, did not respond to diuretics found to have bilateral PE on CTA chest today venous doppler negative for DVT bilaterally unclear why he developed PE, he is up to day with colonoscopy, but he says it has been years since his last PSA, the [place] stopped getting them will check PSA in the AM - Bilateral PE causing dyspnea, hypoxic respiratory failure continue heparin drip, will look into whether or not he can afford [facility] venous doppler negative for DVT unclear why he developed clots, will check PSA tomorrow, he had a colonoscopy within past year, no pulmonary nodules/mass on CT titrate off oxygen as tolerated PG Care Time/CCT Total # of Minutes Spent Total Time Spent with Patient: Total time spent is greater than 50% in coordination of care (as documented) at patient's floor/unit and/or counseling patient: Coding Level of Care Code 56110 Initial Inpt Care Lvl 3 Diagnoses Pulmonary embolism, bilateral I26.99 Hypertension I10 Hyperlipidemia E78.5 Peripheral neuropathy G62.9 PTSD (post-traumatic stress disorder) F43.10 Migraines G43.909 Arthritis M19.90 Asthma J45.909 DVT prophylaxis Z29.9
--- NOTE | 2020-01-24 10:18 | Electrocardiogram Report ---
Test Reason : Blood Pressure : / mmHG Vent. Rate : 111 BPM Atrial Rate : 111 BPM P-R Int : 158 ms QRS Dur : 070 ms QT Int : 328 ms P-R-T Axes : 040 016 009 degrees QTc Int : 446 ms Sinus tachycardia Cannot rule out Anterior infarct , age undetermined Abnormal ECG No previous ECGs available Confirmed by Marek Lara ([id number]) on 01/24/2020 10:18:08 AM Referred By: REFERRED SELF Confirmed By:Marek Lara
[2020-01-24] MEDS ORDERED: [UNRECOGNIZED DRUG - SUPPLY] SCH (10:30)
[2020-01-24] MEDS ORDERED: ACETAMINOPHEN 325 MG TAB PO PRN (10:30)
[2020-01-24] MEDS ORDERED: ALBUTEROL HFA 8 GM INHALER INH PRN (10:30)
[2020-01-24] MEDS ORDERED: ONDANSETRON INJ 2 MG/ML 2 ML VIAL IV PRN (10:30)
--- NOTE | 2020-01-24 12:01 | Ultrasound Report ---
BILATERAL LOWER EXTREMITY VENOUS DOPPLER CLINICAL HISTORY: Pulmonary emboli. COMPARISON STUDY: No previous studies for comparison. TECHNIQUE: Sonography of the deep venous system of the bilateral lower extremities was performed. Co mpression and augmentation were evaluated. FINDINGS: The bilateral common femoral, superficial femoral and popliteal veins were compressible. A ugmentation was normal. Flow was shown within the deep calf vessels. IMPRESSION: No evidence of deep venous thrombus within the bilateral lower extremities. ACT 112: Negative or not required by law. Electronically signed by: Maurice Mcadams M.D. 01/24/2020 12:00 PM
[2020-01-24 14:43] LABS: Partial Thromboplastin Ratio 3.4
[2020-01-24 14:48] LABS: Partial Thromboplastin Time 95.4 Seconds (21.0-31.0)
--- NOTE | 2020-01-24 15:45 | XCELERA ---
[id number]
[2020-01-24] MEDS: traMADol HCL 50 MG TABLET PO PRN (20:34)
[2020-01-24] MEDS: NAPROXEN 250 MG TAB PO SCH (20:35)
[2020-01-24] MEDS: TRIAMCINOLONE ACET 0.1% OINT 15 GM TUBE TOP SCH (20:35)
[2020-01-24] MEDS ORDERED: LATANOPROST 0.005% OP SOLN 2.5 ML BTL OP SCH (21:00)
[2020-01-24 22:59] LABS: Partial Thromboplastin Ratio 2.3
[2020-01-24 23:06] LABS: Partial Thromboplastin Time 63.6 Seconds (21.0-31.0)
[2020-01-25] MEDS: HEPARIN SODIUM/DEXTROSE 25,000 UNITS/500 ML BAG IV SCH (03:29)
[2020-01-25] MEDS: NAPROXEN 250 MG TAB PO SCH (08:03)
[2020-01-25] MEDS: TRIAMCINOLONE ACET 0.1% OINT 15 GM TUBE TOP SCH (08:07)
[2020-01-25 08:28] LABS: Hematocrit (blood only) 44.3 % (42-52); Hemoglobin 14.1 g/dL (14.0-18.0); Mean Corpuscular Hemoglobin 29.8 pg (25-34); Mean Corpuscular Hgb Conc 31.8 g/dL (32-36); Mean Corpuscular Volume 93.7 fL (80-100); Mean Platelet Volume 9.6 fL (7.4-10.4); Platelet Count 246 K/uL (130-400); RDW Coefficient of Variation 15.5 % (11.5-14.5); RDW Standard Deviation 53.8 fL (36.4-46.3); Red Blood Count 4.73 M/uL (4.7-6.1); White Blood Count 7.37 K/uL (4.8-10.8)
[2020-01-25 08:49] LABS: Partial Thromboplastin Ratio 2.6
[2020-01-25 08:57] LABS: Partial Thromboplastin Time 71.7 Seconds (21.0-31.0)
[2020-01-25 08:58] LABS: Albumin Level 3.2 gm/dl (3.4-5.0); BUN Creatinine Ratio 16.9 (10-20); Calcium 8.8 mg/dl (8.5-10.1); Creatinine Clr Calc Pharmacy 71.5 ml/min; Est GFR (African American) 81.7; Est GFR (Non-African American) 70.5; Potassium 3.9 mmol/L (3.5-5.1)
[2020-01-25] MEDS ORDERED: FUROSEMIDE 20 MG TAB PO SCH (09:00)
[2020-01-25] MEDS ORDERED: buPROPion SR 100 MG TABCR PO SCH (09:00)
[2020-01-25] MEDS ORDERED: FLUTICASONE PROPIONATE NA SPR 16 GM BTL SCH (09:00)
[2020-01-25] MEDS ORDERED: FLUTICASONE/VILANTEROL 200/25MCG 14 PUFFS/INHALER INH SCH (09:00)
[2020-01-25] MEDS ORDERED: lisinopril 10 MG TAB PO SCH (09:00)
[2020-01-25] MEDS ORDERED: VITAMIN B COMPLEX TAB PO SCH (09:00)
[2020-01-25] MEDS ORDERED: allopurinoL 100 MG TAB PO SCH (09:00)
[2020-01-25] MEDS ORDERED: CHOLECALCIFEROL 1,000 UNITS 25 MCG TAB PO SCH (09:00)
[2020-01-25 09:03] LABS: Albumin Globulin Ratio 0.9 (0.9-2); Bilirubin,Total 0.5 mg/dl (0.2-1); Globulin 3.5 gm/dl (2.5-4.0); Prostate Specific Antigen 1.68 ng/ml (0-4); Total Protein 6.7 gm/dl (6.4-8.2)
[2020-01-25 09:12] LABS: Estimated Average Glucose 120 mg/dl; Hemoglobin A1C 5.8 % (4.5-5.6)
[2020-01-25] MEDS: traMADol HCL 50 MG TABLET PO PRN (10:40)
[2020-01-25] MEDS ORDERED: RIVAROXABAN 15 MG TAB PO SCH ×2 (11:45→13:45)
[2020-01-25 12:12] VITALS: PULSE 86; TEMP 98.1; O2SAT 93
[2020-01-25 14:21] VITALS: BP 144/89
--- NOTE | 2020-01-26 08:32 | Discharge Summary ---
Date of Service January 25, 2020 Admission HPI Per Admitting Provider This is a 69-year-old male with past medical history of HTN, HLD, PTSD, migraine, arthritis, asthma, low back pain who presents with progressive worsening shortness of breath, which has been going on for some time now. He has been following with PCP and it was thought that he had some component of CHF and therefore were titrating his diuretics. He noticed his shortness of breath began 2 weeks ago. To his knowledge he cannot recall any trauma, secondary trauma specifically or prolonged travel. Denies any pain or tenderness in his calf muscle bilaterally. He presents to the ER due to worsening breathing and was found to be tachycardic. D-dimer was elevated. On CTA found to have bilateral PEs. Principal Diagnosis Bilateral pulmonary emboli Discharge Exam Constitutional WD/WN, vitals as above Neck trachea midline, no thyromegaly Respiratory normal respiratory effort, lungs clear to auscultation Cardiovascular RRR, no murmur, no edema Gastrointestinal (Abdomen) normal bowel sounds, soft, nontender, no hepatosplenomegaly Musculoskeletal no cyanosis or clubbing, extremities motor strength 5/5 Skin no rashes, warm and dry Neurologic patellar DTR's 2+ bilat, sensation intact and PERRL, EOMI, accommodation nl, no face palsy, no dysarthria Psychiatric A+Ox3, euthymic affect Lymphatic no cervical or axillary lymphadenopathy Discharge Data Allergies Allergy/AdvReac Type Severity Reaction Status Date / Time benzonatate Allergy Unknown rash Verified 01/24/20 06:29 clindamycin Allergy Unknown rash Verified 01/24/20 06:29 codeine Allergy Unknown rash Verified 01/24/20 06:29 garlic Allergy Unknown Unknown Verified 01/24/20 06:29 grass pollen Allergy Unknown Unknown Verified 01/24/20 06:29 hydrocodone Allergy Unknown rash Verified 01/24/20 06:29 levofloxacin Allergy Unknown rash Verified 01/24/20 06:29 milk Allergy Unknown Unknown Verified 01/24/20 06:29 mold Allergy Unknown Unknown Verified 01/24/20 06:29 montelukast [From Singulair] Allergy Unknown Unknown Unverified 01/24/20 06:29 omeprazole Allergy Unknown rash Verified 01/24/20 06:29 oxycodone Allergy Unknown rash Verified 01/24/20 06:29 paroxetine Allergy Unknown rash Verified 01/24/20 06:29 tree and shrub pollen Allergy Unknown Unknown Verified 01/24/20 06:29 azithromycin Allergy Rash Verified 01/24/20 06:29 Consultations 01/24/20 08:37 ED Decision to Admit Stat 01/24/20 10:30 Consult Case Management - Discharge Planning Routine Ordered Studies 01/24/20 06:57 CT angio chest PE protocol Stat 01/24/20 11:00 US venous doppler LE BI Stat Hospital Course (1) Pulmonary embolism, bilateral: -Admit to telemetry -treated with heparin drip initially -CTA reviewed showing moderately extensive acute bilateral pulmonary embolism in all lobes, suspected mild right ventricular strain, no pleural effusions, multiple borderline enlarged mediastinal lymph nodes -Check venous Doppler bilateral LE - NEGATIVE for DVT bilaterally -2D echo with evidence of right heart strain but normal LV EF titrated off of oxygen the following day, no respiratory distress, no chest pain will discharge home on Xarelto 15mg BID x 21 days then 20mg daily, [facility] he will need to be on this for 12 months recommend considering referral to hematology in a few months to determine duration of treatment, hypercoagulable work up? this was unprovoked embolism (2) Hypertension: -Continue lisinopril 10 mg, Lasix 20 mg daily (3) Hyperlipidemia: -Patient is not on statin therapy follow up with PCP (4) Peripheral neuropathy: -History of such (5) PTSD (post-traumatic stress disorder): -History of such, continue Wellbutrin (6) Migraines: -History of such, none currently (7) Arthritis: - patient reports being evaluated for history such as rheumatoid arthritis by his PCP with chronic arthritic complaints of bilateral hips bilateral knees bilateral ankles and wrists (8) Asthma: -Had used albuterol inhaler more recently due to shortness of breath secondary to above but did not improve his symptoms, can continue inhaler as needed Total Time Total Time Spent Total Time Spent (In Minutes): 40 minutes Total Time Includes: Examination of the Patient, Discharge Planning, Medication Reconciliation, Communication With Other Providers (showcase maker) and Other (extensive update with his and daughter at the bedside) Discharge Plan Discharge Items Patient Disposition: Home - Self-Care Reason For Visit: BILATERAL PULMONARY EMBOLISM Discharge Diagnosis: Bilateral pulmonary embolism Condition on Discharge: Good Activity: Resume your previous activity Driving/Machine Use: Resume 1 day after discharge Weightbearing: Full weightbearing Non-emergency contact: Primary Care Provider Call non-emergency contact if: you have any medication questions Follow-up/Referrals: Urban Chavira DO [Primary Care Provider] - 01/31/20 1:30 pm (one week) Diet: Heart Healthy Addtl Attending Provider Instructions: Medications: - XARELTO: take 15mg twice a day for 21 days then change to 20mg daily we will release 4 tablets for you to take until you can get script filled by [place] pharmacy Bilateral pulmonary emboli unclear etiology, this would be consider unprovoked clots there was no evidence of DVT in the lower extremities you are up to date on cancer screening, your PSA was normal you were treated with heparin drip, we will discharge you on Xarelto 15mg BID for 21 days and then 20mg daily you will remain on the Xarelto 20mg daily for 12 months your PCP could consider a referal to hematology as outpatient since the cause of the clot is unclear no physical restrictions at this time you do not require oxygen Pending Studies at Discharge: No Stand-Alone Forms: My [facility] [place] Baby Care, Smoking Cessation Medications and DC Order Prescriptions: New Xarelto DVT-PE Treat 30d Start 15 mg (42)- 20 mg (9) tablets,dose pack 1 ea PO UD Qty: 51 RF: 0 Continued lisinopril 10 mg tablet 10 mg PO DAILY Qty: 30 RF: 5 naproxen sodium 550 mg tablet 550 mg PO BID Qty: 60 RF: 5 vitamin B complex [B Complex-Vitamin B12] tablet 1 tab PO DAILY RF: 0 tramadol 50 mg tablet 50 mg PO QID PRN (Reason: pain) Qty: 120 RF: 0 (DME) inhalat.spacing dev,large mask spacer See Dose Instructions .ROUTE .MEDSUPPLY Qty: 1 RF: 0 triamcinolone acetonide 0.1 % ointment 1 appln TOP BID Qty: 15 RF: 2 albuterol sulfate 90 mcg/actuation HFA aerosol inhaler 2 puffs inhalation Q4H PRN (Reason: shortness of breath or wheezing) Qty: 6.7 RF: 0 Symbicort 160-4.5 mcg/actuation HFA aerosol inhaler 2 puffs INH BID Qty: 6 RF: 0 bupropion HCl [Wellbutrin SR] 100 mg tablet sustained-release 12 hr 100 mg PO DAILY Qty: 90 RF: 0 cholecalciferol (vitamin D3) 1,000 unit capsule 1,000 units PO DAILY Qty: 90 RF: 0 fluticasone propionate [Flonase Allergy Relief] 50 mcg/actuation spray,suspension 2 sprays INTNAS DAILY Qty: 9.9 RF: 0 latanoprost [Xalatan] 0.005 % drops 1 drops OP QPM Qty: 2.5 RF: 0 furosemide 20 mg tablet 20 mg PO DAILY RF: 0 allopurinol 100 mg Tablet 200 mg PO DAILY RF: 0 Discharge Orders: Discharge Order (Routine); Ordered 01/25/20 Ordered By: Sergei Pratt Admission Data Admit Date/Time: 01/24/20 09:10 Attending Provider: Sergei Pratt Admit Provider: Sergei Pratt Primary Care Provider: Urban Chavira Other Providers: Sergei Pratt Other Interventions: Discharge Summary Assessment (RN) Last Done: 01/25/20 14:19 Coding Level of Care Code D/C Day Management >30 mins Diagnoses Pulmonary embolism, bilateral I26.99 Hypertension I10 Hyperlipidemia E78.5 Peripheral neuropathy G62.9 PTSD (post-traumatic stress disorder) F43.10 Migraines G43.909 Arthritis M19.90 Asthma J45.909
== END 2020-01-25 14:52 | disposition home or self-care (01) | DRG 176 ==
LOC: ED 04:52 → 2S 09:10

== ENCOUNTER 2024-09-26 18:18 | Inpatient (IN) ==
--- NOTE | 2024-09-26 18:40 | Emergency Department Note ---
Impression & Plan Sepsis, Pneumonia, Tachycardia, Fever, COVID-19, Influenza A, SOB (shortness of breath) ED Provider Note NAME: RADHA NIELSEN AGE: 74 SEX: M : 1950 ARRIVES VIA: Walk-In INFORMANT: [Patient][family/friend] ED PROVIDER(S): [Bob Moran MD] CHIEF COMPLAINT: Weakness, cough HISTORY OF PRESENT ILLNESS: The patient is a 74-year-old male who has been sick for 3, maybe 4 days. He has been weak, he has had chills and has been fatigued. He has been feeling short of breath and has been coughing up some yellowish sputum. There has been no vomiting or diarrhea, no urinary complaints. No rash. The patient does have lung disease. 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 He was told that he had Pseudomonas on a previous sputum culture. He states that this was never treated though because, he has too many allergies. Of note, the patient returned from [place] today. He began getting sick toward the end of his trip. PMHx/PSHx/Social Hx: See Below PHYSICAL EXAM: GENERAL: Patient is in no acute distress. HEENT: No acute trauma, normocephalic atraumatic, mucous membranes moist, no nasal congestion. NECK: No stridor, no adenopathy, no meningismus, trachea is midline. LUNGS: Wheezing bilaterally with a moist cough noted. Crackles heard at the left base. HEART: Mildly tachycardic, regular rhythm, no murmurs. ABDOMEN: Soft, nontender, no peritonitis. EXTREMITIES: No cyanosis, full range of motion of all the joints without pain or difficulty. NEUROLOGIC: Oriented x 3, no acute motor or sensory deficits, no focal weakness. SKIN: No jaundice, no diaphoresis. DIFFERENTIAL DIAGNOSIS: Bacteremia or sepsis, viral illness, pneumonia, UTI, among others. EMERGENCY DEPARTMENT PROCEDURES: MEDICAL DECISION MAKING: There is no leukocytosis or concerning anemia. There is a normal platelet count. No coagulopathy. No renal failure or significant electrolyte abnormality. Lactic acid level is not elevated making severe sepsis less likely. No concerning liver enzyme elevation. ECG shows a sinus tachycardia, no ST elevation. Cardiac enzyme testing x 1 is not consistent with acute cardiac injury. Urinalysis does not show findings of infection. COVID and influenza A test returned positive. RSV test was negative. Chest x-ray shows a potential early left lower lobe infiltrate. On exam, the patient was wheezing with a wet cough. He was tachycardic and febrile. There were crackles heard in the area of the left lower lung. Patient was aggressively managed as he did meet criteria for sepsis. Patient received IV saline, 1 L. He was given oral Tamiflu for the findings of influenza A. He was given oral ibuprofen for his fever. He received IV cefepime as antibiotic coverage. He was given a DuoNeb. I do think the patient requires a hospital stay. Not only does he have 2 viral illnesses but, he has a history of pseudomonal lung colonization. I am concerned for an early pneumonia. I did speak with the patient and his family, I spoke with case management, the on-call hospitalist was consulted. Patient does seem somewhat improved since his treatment here in the ED. Prior/Outside records/notes reviewed: None ECG per my interpretation: Indication was possible sepsis. The ECG shows a sinus tachycardia with a rate of 109. There is some poor R wave progression. No ST elevation, no PVCs. The QTc is 414. Continuous Cardiac Monitoring per my interpretation: An order was placed for continuous cardiac monitoring. The monitor shows a rate of 112 with sinus tachycardia. Imaging/x-ray results per my interpretation: Chest x-ray shows a potential early infiltrate at the left base. No CHF. Chronic Medical/Social conditions affecting care: Advanced age. Care/Management discussed with: Case management, the on-call hospitalist. Level of care consideration(s): After review of the information above and other included data: --I believe the patient requires escalation of care to admission Critical Care Note: I have personally spent 49 minutes of critical care time in the direct management of this patient. This includes bedside care, interpretation of diagnostic studies, and testing, discussion with consultants, patient, and family members, and other required patient management activities. This 49 minutes is in excess of all separately billable procedures. DISPOSITION: Admission Past Med/Surg History Problem List (Updated 09/26/24 @ 21:51 by Bob Moran MD) SOB (shortness of breath) (Acute) Influenza A (Acute) COVID-19 (Acute) Fever (Acute) Tachycardia (Acute) Pneumonia (Acute) Sepsis (Acute) Left wrist tendonitis History of pulmonary hypertension Cervicalgia Statin intolerance Pseudomonas aeruginosa colonization Bronchiectasis Cough Asthma daily and prn inh 2-3x per week Torticollis, acute Lumbar facet joint syndrome Foot pain, left Chronic SI joint pain Hiccups Moderate persistent asthma, uncomplicated Superficial varicosities Anxiety due to invasive procedure Slow urinary stream Nocturia Chronic sinusitis Normal left ventricular systolic function and wall motion Whipple's neuroma Sensorineural hearing loss (SNHL) of right ear with unrestricted hearing of left ear History of pulmonary embolism 01/2020 - unk etiology - on xarelto COPD (chronic obstructive pulmonary disease) Vertigo Pulmonary hypertension Chronic anticoagulation Xarelto therapy status post bilateral PE Spinal stenosis of lumbar region Inflammatory arthritis GERD (gastroesophageal reflux disease) Bilateral hip pain Bilateral lower extremity edema Left knee DJD Allergic rhinitis Hyperlipidemia (Chronic) unable to russell statin Hypertension (Chronic) Peripheral neuropathy (Chronic) Cervical facet syndrome (Chronic) PTSD (post-traumatic stress disorder) (Chronic) Migraines (Chronic) Medical History Bronchopneumonia due to Pseudomonas species Torticollis reason for prednisone/soma Lumbar facet joint syndrome Hx of vertigo no recent issues Peripheral neuropathy Nocturia Hx of migraines Hyperlipidemia GERD (gastroesophageal reflux disease) COPD (chronic obstructive pulmonary disease) Chronic sinusitis Chronic anticoagulation Xarelto therapy status post bilateral PE Arthralgia Allergic rhinitis Degenerative disc disease History of melanoma Depression PTSD (post-traumatic stress disorder) Anxiety Gout HTN (hypertension) Rheumatoid arthritis Pulmonary embolism, bilateral 01/2020 - unk etiology - on xarelto Carpal tunnel syndrome of left wrist Claustrophobia Tubular adenoma of colon hx Agent orange exposure Glaucoma Surgical History S/P trigger finger release History of prior ablation treatment History of non-cataract eye surgery History of tooth extraction History of colonoscopy History of melanoma excision H/O oral surgery H/O lumbosacral spine surgery Family History Aunt Myocardial infarction Son Allergic rhinitis Father Hypertension Lung cancer Other No family history of adverse response to anesthesia No family history of bleeding disorder Denies family history of Ovarian cancer Prostate cancer Diabetes Coronary heart disease Depression Breast cancer Colorectal cancer Social History Smoking Status: Never smoker Tobacco Type: Cigarettes Age Started Using Tobacco: 18; Age Quit Using Tobacco: 50; packs per day: 0.5; Second Hand Exposure: No; Do You Dip or Chew Tobacco: No (quit; advised); Hx Alcohol Use: Yes Hx Substance Use: No Preferred Language: Wallisian Communication Ability: Effective Visual Impairment: Limited Hearing Ability: Hard of Hearing Manager Sterile Required: No Beliefs That Will Affect Care: None marital status: Current Living Situation: Spouse current occupational status: retired How many Children do You have: 2 Feels Safe at Home: Yes Childhood Exposure to Second-Hand Smoke: Yes Diet: regular caffeine: Yes during the past year weight has: remained stable Dental Care, Regularly: No Physical Activity Frequency: Daily Seatbelt Use: always Sunscreen Use: No Assistive Devices: Denture - Upper, Denture - Lower and Glasses Allergies Allergies Allergy/AdvReac Type Severity Reaction Status Date / Time Rabbit Allergy Severe Anaphylaxis Verified 09/26/24 21:13 ciprofloxacin [From Cipro] Allergy Intermediate rash Verified 09/26/24 21:13 azithromycin Allergy Mild Rash Verified 09/26/24 21:13 benzonatate Allergy Mild rash Verified 09/26/24 21:13 clindamycin Allergy Mild rash Verified 09/26/24 21:13 codeine Allergy Mild rash Verified 09/26/24 21:13 hydrocodone Allergy Mild rash Verified 09/26/24 21:13 omeprazole Allergy Mild rash Verified 09/26/24 21:13 oxycodone Allergy Mild rash Verified 09/26/24 21:13 paroxetine Allergy Mild rash Verified 09/26/24 21:13 tamsulosin [From Flomax] Allergy Mild Rash Verified 09/26/24 21:13 carisoprodol Allergy Unknown Unknown Verified 09/26/24 21:13 garlic Allergy Unknown Unknown Verified 09/26/24 21:13 grass pollen Allergy Unknown Unknown Verified 09/26/24 21:13 milk Allergy Unknown Unknown Verified 09/26/24 21:13 mold Allergy Unknown Unknown Verified 09/26/24 21:13 tree and shrub pollen Allergy Unknown Unknown Verified 09/26/24 21:13 flexeril Allergy Unknown Unknown Uncoded 09/26/24 21:13 levoquin AdvReac Intermediate tendonitis Uncoded 09/26/24 21:13 Home Meds Home Medications Medication Instructions Recorded Confirmed inhalat.spacing dev,large mask #1 ea 11/02/18 09/07/24 allopurinol 100 mg tablet 200 mg PO QAM 01/24/20 09/26/24 rivaroxaban 20 mg tablet (Xarelto) 20 mg PO QAM 03/29/20 09/26/24 cholecalciferol (vitamin D3) 25 1,000 units PO QAM 06/14/20 09/26/24 mcg (1,000 unit) capsule red yeast rice 600 mg capsule 1,200 mg PO DAILY 09/07/20 09/26/24 latanoprost 0.005 % eye drops 1 drp ophthalmic (eye) QPM 11/03/20 09/26/24 (Xalatan) acetaminophen 500 mg tablet 1,000 mg PO BID PRN pain 08/29/21 09/26/24 (Tylenol Extra Strength) carboxymethylcellulose sodium 1 % 1 drp ophthalmic (eye) QID 08/29/21 09/26/24 eye liquid gel drops (Refresh Liquigel) lifitegrast 5 % eye drops in a 1 drp ophthalmic (eye) BID 08/29/21 09/26/24 dropperette montelukast 10 mg tablet 10 mg PO QAM 11/01/21 09/26/24 tiotropium bromide 1.25 2.5 mcg inhalation QAM 12/03/21 09/26/24 mcg/actuation mist for inhalation (Spiriva Respimat) losartan 50 mg tablet 50 mg PO DAILY 03/06/22 09/26/24 nutritional supplement-fiber oral 1 ea PO DAILY 05/03/22 09/26/24 liquid bupropion HCl 100 mg tablet,12 hr 150 mg PO BID 07/18/22 09/26/24 sustained-release (Wellbutrin SR) hydrocortisone 2 % lotion 1 applic topical BID PRN Pain 07/18/22 09/26/24 cyanocobalamin (vitamin B-12) 1,000 mcg PO DAILY 08/12/23 09/26/24 1,000 mcg capsule hydrocortisone 2.5 % topical cream 1 applic topical BID 08/12/23 09/26/24 olopatadine 0.1 % eye drops 1 drp ophthalmic (eye) BID 08/12/23 09/26/24 omega 2-kci-rra-fish oil 60 mg-90 1 cap PO DAILY 08/12/23 09/26/24 mg-500 mg capsule (Fish Oil) sildenafil 50 mg tablet 50 mg PO DAILY PRN Dry Eyes 08/12/23 09/26/24 vit C 250 mg-vit E 90 mg-zinc 40 1 tab PO BID 08/12/23 09/26/24 mg-copper 1 [id number] capsule (PreserVision AREDS-2) alfuzosin 10 mg tablet,extended 10 mg PO QAM 11/07/23 09/26/24 release 24 hr (Uroxatral) multivitamin 1 tab PO DAILY 11/07/23 09/26/24 budesonide-formoterol HFA 160 2 inh inhalation BID 09/26/24 09/26/24 mcg-4.5 mcg/actuation aerosol inhaler Previous Rx's Medication Instructions Recorded albuterol sulfate 90 mcg/actuation 2 puffs inhalation Q4H PRN 10/08/18 aerosol inhaler shortness of breath or wheezing #6.7 grams fluticasone propionate 50 2 sprays intranasal DAILY #9.9 10/08/18 mcg/actuation nasal grams spray,suspension (Flonase Allergy Relief) sodium chloride, sodium See Rx Instructions .Route 12/12/21 bicarb-nasal rinse squeeze bottle .COMPLEX #50 ea with packet (Neilmed Sinus Rinse Complete with packet) Flutter Valve #1 ea 01/22/22 naloxone 4 mg/actuation nasal 4 mg intranasal Q3M PRN opioid 11/27/23 spray (Narcan) overdose #2 ea baclofen 5 mg tablet 5 mg PO BID #60 tabs 07/01/24 tramadol 50 mg tablet 100 mg (2 x 50 mg) PO TID PRN pain 07/01/24 #180 tabs amoxicillin 500 mg-potassium 1 tab PO BID #14 tabs 09/06/24 clavulanate 125 mg tablet (Augmentin) prednisone 20 mg tablet 20 mg PO .COMPLEX #10 tabs 09/06/24 Results & Data (ED) Vital Signs Vital Signs - 24 hr 09/26/24 18:19 09/26/24 18:19 09/26/24 18:19 Temperature Temperature Source Pulse Rate Pulse Rate [Right Brachial] 109 H Pulse Rate from SpO2 Sensor Pulse Rhythm [Right Brachial] Regular Pulse Strength [Right Brachial] Normal Respiratory Rate 22 Respiratory Effort / Characteristics Non-Labored Respiratory Depth Normal Respiratory Pattern Regular Blood Pressure Blood Pressure [Right Arm] 151/106 H Blood Pressure Mean Blood Pressure Mean [Right Arm] 121 Blood Pressure Position Blood Pressure Position [Right Arm] Lying Pulse Oximetry 100 100 Oxygen Delivery Method Room Air Room Air Room Air Sepsis Recent Fever Within 48 Hours Sepsis New/Unexplained Change in Mental Status Sepsis Action Taken by Nursing 09/26/24 18:23 09/26/24 18:34 09/26/24 19:00 Temperature 39.2 C H Temperature Source Oral Pulse Rate 113 H 112 H Pulse Rate [Right Brachial] Pulse Rate from SpO2 Sensor Pulse Rhythm [Right Brachial] Pulse Strength [Right Brachial] Respiratory Rate 20 Respiratory Effort / Characteristics Non-Labored Spontaneous Respiratory Depth Normal Respiratory Pattern Regular Blood Pressure 172/86 H 161/92 H Blood Pressure [Right Arm] Blood Pressure Mean 114 110 Blood Pressure Mean [Right Arm] Blood Pressure Position Sitting Blood Pressure Position [Right Arm] Pulse Oximetry 92 Oxygen Delivery Method Room Air Sepsis Recent Fever Within 48 Hours Yes Sepsis New/Unexplained Change in Mental Status N/A Sepsis Action Taken by Nursing No Action Required 09/26/24 19:15 09/26/24 19:33 Temperature Temperature Source Pulse Rate 117 H 112 H Pulse Rate [Right Brachial] Pulse Rate from SpO2 Sensor 112 H 112 H Pulse Rhythm [Right Brachial] Pulse Strength [Right Brachial] Respiratory Rate 25 H 31 H Respiratory Effort / Characteristics Respiratory Depth Respiratory Pattern Blood Pressure 162/84 H 161/90 H Blood Pressure [Right Arm] Blood Pressure Mean 110 113 Blood Pressure Mean [Right Arm] Blood Pressure Position Blood Pressure Position [Right Arm] Pulse Oximetry 100 94 Oxygen Delivery Method Sepsis Recent Fever Within 48 Hours Sepsis New/Unexplained Change in Mental Status Sepsis Action Taken by Long Term Medications Current Medication List: was personally reviewed by me Laboratory Data Attestation: I reviewed the patient's lab results. 09/26/24 18:52 09/26/24 18:52 Lab Results 09/26/24 09/26/24 09/26/24 Range/Units 18:52 19:48 20:09 WBC 9.97 (4.8-10.8) K/ul RBC 5.12 (4.70-6.10) M/uL Hgb 15.5 (14.0-18.0) g/dl Hct 47.7 (42.0-52.0) % MCV 93.2 (80.0-100.0) fL MCH 30.3 (25.0-34.0) pg MCHC 32.5 (32.0-36.0) g/dL RDW Std Deviation 48.9 H (36.4-46.3) fL RDW Coeff of Miguel 14.3 (11.5-14.5) % Plt Count 186 (130-400) K/uL MPV 8.8 L (9.4-12.4) fL Immature Gran % (Auto) 0.3 % Neut % (Auto) 79.9 % Lymph % (Auto) 6.3 % Roberts % (Auto) 12.6 % Eos % (Auto) 0.3 % Baso % (Auto) 0.6 % Neut # (Auto) 7.96 H (1.40-6.50) K/uL Lymph # (Auto) 0.63 L (1.20-3.40) K/uL Roberts # (Auto) 1.26 H (0.11-0.59) K/uL Eos # (Auto) 0.03 (0.00-0.50) K/uL Baso # (Auto) 0.06 (0.00-0.20) K/uL Immature Gran # (Auto) 0.03 (0.01-0.20) K/uL PT 11.1 (9.0-12.0) Seconds INR 1.0 (0.9-1.1) APTT 32 H (21-31) Seconds PTT Ratio 1.2 Sodium 134 L (136-145) mmol/L Potassium 4.0 (3.5-5.1) mmol/L Chloride 100 (98-107) mmol/L Carbon Dioxide 26 (21-32) mmol/L Anion Gap 8 (3-11) BUN 16 (6-23) mg/dl Creatinine 1.11 (0.6-1.4) mg/dl Est Cr Clr Drug Dosing Not Reportable eGFR 69.68 BUN/Creatinine Ratio 14.4 (10-20) Glucose 123 H (70-99(Fasting)) mg/dl Lactate 0.9 (0.4-2.0) mmol/L Calcium 8.6 (8.6-10.3) mg/dl Magnesium 1.8 (1.7-2.4) mg/dl Total Bilirubin 0.8 (0.2-1.0) mg/dl Direct Bilirubin 0.2 (0-0.2) mg/dl AST 21 (13-39) U/L ALT 21 (7-52) U/L Alkaline Phosphatase 72 (34-104) U/L Troponin I High Sens 5.6 (0-20) pg/ml Total Protein 7.1 (6.0-8.3) gm/dl Albumin 3.9 (3.4-5.0) gm/dl Procalcitonin 0.09 (0-0.5) ng/ml Urine Color Yellow Urine Appearance Clear (Clear) Urine pH 6.5 (4.5-7.5) Ur Specific Shepherd 1.018 (1.000-1.030) Urine Protein Trace H (Negative) Urine Glucose (UA) Negative (Negative) Urine Ketones 2+ H (Negative) Urine Blood Trace H (Negative) Urine Nitrite Negative (Negative) Urine Bilirubin Negative (Negative) Urine Urobilinogen Negative (Negative) Ur Leukocyte Esterase Negative (Negative) Urine WBC (Auto) 0-5 (0-5) /hpf Urine RBC (Auto) 6-10 H (0-2) /hpf U Hyaline Cast (Auto) 0-2 (0-2) /lpf U Epithel Cells (Auto) 0-2 (0-2) /hpf Urine Bacteria (Auto) None Seen (None Seen) Urine Comment SARS-CoV-2 (PCR) POSITIVE A (Negative) Influenza Type A (PCR) Positive A (Neg) Influenza Type B (PCR) Negative (Neg) RSV (RT-PCR) Negative (Neg) Administered Medications Discontinued Medications Albuterol (Albut/Ipratrop 3mg/0.5mg Neb 3 Ml Vial) 3 ml NEB NOW STA; Protocol Stop: 09/26/24 18:36 Last Admin: 09/26/24 18:56 Dose: 3 ml Documented By: JEANINE Sodium Chloride (Nss) 1,000 mls @ 999 mls/hr IV .Q1H1M ONE Stop: 09/26/24 19:35 Last Infusion: 09/26/24 20:16 Dose: Infused Documented By: Admin: 09/26/24 18:55 Dose: 999 mls/hr Documented By: JEANINE Cefepime HCl (Maxipime 2000mg) 2,000 mg in 20 mls @ 5 mls/min IV NOW STA; Protocol Stop: 09/26/24 18:40 Last Admin: 09/26/24 18:55 Dose: 5 mls/min Documented By: JEANINE Ibuprofen (Ibuprofen 600 Mg Tab) 600 mg PO NOW STA Stop: 09/26/24 18:36 Last Admin: 09/26/24 18:56 Dose: 600 mg Documented By: JEANINE Oseltamivir Phosphate (Oseltamivir Phosphate 75 Mg Cap) 75 mg PO NOW STA Stop: 09/26/24 21:08 Last Admin: 09/26/24 21:34 Dose: 75 mg Documented By: ERIK Imaging Data Radiologist's Impression: Chest X-Ray 09/26/24 18:28 Chest radiograph, one view History: Chest pain Comparison: 07/19/2024 Findings: Single AP view of the chest performed. No focal consolidation or pleural effusion. No pneumothorax. The cardiomediastinal silhouette is within normal limits. Normal pulmonary vascularity. No evidence for lymphadenopathy. No visualized bony or soft tissue abnormality. 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 ED Provider: Bob Moran Discharge Problem: Sepsis, Pneumonia, Tachycardia, Fever, COVID-19, Influenza A, SOB (shortness of breath) Patient Disposition: Admitted As Inpatient Condition: Fair Forms Stand Alone Forms: [facility] Prescriptions Prescriptions: No Action baclofen 5 mg tablet 5 mg PO BID Qty: 60 2RF tramadol 50 mg tablet 100 mg PO TID PRN (Reason: pain) Qty: 180 0RF Xarelto 20 mg tablet 20 mg PO QAM Rx Instructions: must administer with evening meal prednisone 20 mg tablet 20 mg PO .COMPLEX Qty: 10 0RF Rx Instructions: PER PT "NEVER TOOK THIS MED" 20 mg orally 2 tab daily for 5 days; will take with him on vacation amoxicillin-pot clavulanate [Augmentin] 500-125 mg tablet 1 tab PO BID Qty: 14 0RF Rx Instructions: PER PT "NEVER TOOK MED" will take with him on vacation latanoprost [Xalatan] 0.005 % drops 1 drp OP QPM Neilmed Sinus Rinse Complete Packet With Rinse Device See Rx Instructions .Route .COMPLEX Qty: 50 3RF Rx Instructions: use daily; hydrocortisone 2 % lotion 1 applic topical BID PRN (Reason: Pain) nutritional supplement-fiber Liquid 1 ea PO DAILY losartan 50 mg tablet 50 mg PO DAILY (DME) Flutter Valve Device See Rx Instructions .MEDSUPPLY Qty: 1 0RF Rx Instructions: As directed (DME) inhalat.spacing dev,large mask spacer See Dose Instructions .ROUTE .MEDSUPPLY Qty: 1 Rx Instructions: As directed albuterol sulfate 90 mcg/actuation HFA aerosol inhaler 2 puffs inhalation Q4H PRN (Reason: shortness of breath or wheezing) Qty: 6.7 0RF fluticasone propionate [Flonase Allergy Relief] 50 mcg/actuation spray,suspension 2 sprays INTNAS DAILY Qty: 9.9 0RF red yeast rice 600 mg capsule 1,200 mg PO DAILY Rx Instructions: give with meal/snack carboxymethylcellulose sodium [Refresh Liquigel] 1 % drops, liquid gel 1 drp ophthalmic (eye) QID lifitegrast 5 % dropperette 1 drp ophthalmic (eye) BID Rx Instructions: administer approximately 12 hours apart montelukast 10 mg tablet 10 mg PO QAM Spiriva Respimat 1.25 mcg/actuation mist 2.5 mcg inhalation QAM sildenafil 50 mg tablet 50 mg PO DAILY PRN (Reason: Dry Eyes) Rx Instructions: administer 30 minutes to 4 hours before activity olopatadine 0.1 % drops 1 drp ophthalmic (eye) BID Rx Instructions: separate doses by at least 6-8 hours hydrocortisone 2.5 % cream 1 applic topical BID omega 1-fep-pck-fish oil [Fish Oil] 60-90-500 mg capsule 1 cap PO DAILY PreserVision AREDS-2 250-90-40-1 mg capsule 1 tab PO BID cyanocobalamin (vitamin B-12) 1,000 mcg capsule 1,000 mcg PO DAILY naloxone [Narcan] 4 mg/actuation spray,non-aerosol 4 mg intranasal Q3M PRN (Reason: opioid overdose) Qty: 2 0RF Rx Instructions: spray 1 dose into ONE nostril; alternate nostrils w each dose until help arrives allopurinol 100 mg Tablet 200 mg PO QAM cholecalciferol (vitamin D3) 1,000 unit capsule 1,000 units PO QAM acetaminophen [Tylenol Extra Strength] 500 mg tablet 1,000 mg PO BID PRN (Reason: pain) bupropion HCl [Wellbutrin SR] 100 mg tablet sustained-release 12 hr 150 mg PO BID multivitamin Tablet 1 tab PO DAILY alfuzosin [Uroxatral] 10 mg tablet extended release 24 hr 10 mg PO QAM Rx Instructions: administer after the same meal each day budesonide-formoterol 160-4.5 mcg/actuation HFA aerosol inhaler 2 inh inhalation BID Rx Instructions: RINSE MOUTH AFTER USE Referrals Referrals: Loly Alvarez CRNP [Primary Care Provider] - Discharge Problem: Sepsis Qualifiers: Sepsis type: sepsis due to unspecified organism Sepsis acute organ dysfunction status: without acute organ dysfunction Qualified Code(s): A41.9 - Sepsis, unspecified organism Pneumonia Qualifiers: Pneumonia type: due to unspecified organism Laterality: left Lung location: l ower lobe of lung Qualified Code(s): J18.9 - Pneumonia, unspecified organism Fever Qualifiers: Fever type: unspecified Qualified Code(s): R50.9 - Fever, unspecified
[2024-09-26] MEDS: CEFEPIME 2000MG 2,000 MG/20 ML SYR IV STA (18:55)
[2024-09-26] MEDS: SODIUM CHLORIDE 0.9% 1,000 ML IV ONE (18:55)
[2024-09-26] MEDS: ALBUT/IPRATROP 3MG/0.5MG NEB 3 ML VIAL NEB STA (18:56)
[2024-09-26] MEDS: IBUPROFEN 600 MG TAB PO STA (18:56)
[2024-09-26 19:13] LABS: Hematocrit (blood only) 47.7 % (42.0-52.0); Hemoglobin 15.5 g/dl (14.0-18.0); Immature Granulocytes # (auto) 0.03 K/uL (0.01-0.20); Immature Granulocytes % (auto) 0.3 %; Mean Corpuscular Hemoglobin 30.3 pg (25.0-34.0); Mean Corpuscular Volume 93.2 fL (80.0-100.0); Platelet Count 186 K/uL (130-400); RDW Standard Deviation 48.9 fL (36.4-46.3); Red Blood Count 5.12 M/uL (4.70-6.10); White Blood Count 9.97 K/ul (4.8-10.8)
[2024-09-26 19:33] LABS: Alanine Aminotransferase 21 U/L (7-52); Alkaline Phosphatase 72 U/L (34-104); Anion Gap 8 (3-11); Bilirubin,Total 0.8 mg/dl (0.2-1.0); Blood Urea Nitrogen 16 mg/dl (6-23); Calcium 8.6 mg/dl (8.6-10.3); Carbon Dioxide 26 mmol/L (21-32); Chloride 100 mmol/L (98-107); Glucose 123 mg/dl (70-99(Fasting)); Magnesium 1.8 mg/dl (1.7-2.4); Potassium 4.0 mmol/L (3.5-5.1); Sodium 134 mmol/L (136-145); Total Protein 7.1 gm/dl (6.0-8.3)
--- NOTE | 2024-09-26 19:34 | XRay Report ---
Chest radiograph, one view History: Chest pain Comparison: 07/19/2024 Findings: Single AP view of the chest performed. No focal consolidation or pleural effusion. No pneumothorax. The cardiomediastinal silhouette is within normal limits. Normal pulmonary vascularity. No evidence for lymphadenopathy. No visualized bony or soft tissue abnormality. Impression: Normal chest radiograph Electronically signed by Kostas Nix 09-26-2024 7:33 PM
[2024-09-26 19:46] LABS: INR 1.0 (0.9-1.1); Partial Thromboplastin Time 32 Seconds (21-31); Prothrombin Time 11.1 Seconds (9.0-12.0)
[2024-09-26 20:29] LABS: Appearance Urine Clear (Clear); Bacteria Urine Automated None Seen (None Seen); Cast Urine Automated 0-2 /lpf (0-2); Epithelial Cell Urine Auto 0-2 /hpf (0-2); Glucose Urine UA Negative (Negative); WBC Urine Automated 0-5 /hpf (0-5)
[2024-09-26 20:40] LABS: Influenza A virus by PCR Positive (Neg); Influenza B virus by PCR Negative (Neg); SARS CoV2 RNA(COVID-19) Ceph POSITIVE (Negative)
[2024-09-26] MEDS: OSELTAMIVIR PHOSPHATE 75 MG CAP PO STA (21:34)
--- NOTE | 2024-09-26 21:41 | History & Physical Report ---
Date of Service September 26, 2024 Assessment & Plan (1) Influenza A: (2) COVID-19: (3) Asthma: (4) Pseudomonas aeruginosa colonization: (5) Pulmonary embolism, bilateral: (6) Rheumatoid arthritis: Plan 74yo male presenting with illness over the last 3 days - fever, chills, cough, SOB, body aches and confusion. Found with Influenza A infection as well as Covid-19. Presently saturating well on room air - no respiratory distress. #Influenza A -Maintain isolation precautions -Tamiflu 75mg po BID -Tylenol PRN -Zofran PRN -Incentive spirometry -Flutter valve qid -Supplemental O2 as needed #Covid-19 -Maintain isolation precautions -Tylenol PRN -Supplemental O2 as needed -Patient anticoagulated on XARELTO for history of PE #Asthma -Duonebs QID -Albuterol q 2 hours -Continue Fluticasone/Vilanterol -Solumedrol 40mg IV BID -Flutter Valve and IS #Pseudomonas aeruginosa colonization -Check sputum culture -Check MRSA nares -Cefepime 2gm IV q 8 hours #History of PE -Continue Xarelto #Seronegative Polyarthritis/Gout -Continue Allopurinol #Mental Health -Continue Bupropion History of Present Illness Chief Complaint: influenza and Covid-19 infection Primary Care Provider: SHERRY Dueñas Hadley Hunt is a 74yo male with history of PE on Xarelto anticoagulation, Asthma with chronic cough, possible Pseudomonas colonization, HTN, and seronegative polyarthritis presenting with fever, chills, body aches, cough and confusion. Patient was recently on an [employer] cruise. Approximately 3 days ago he developed cough productive for yellow sputum, congestion, fever, chills, body aches and fatigue. Patient feels that he can't concentrate well. No vomiting, diarrhea, abdominal pain or urinary complaints. In the ER patient febrile, tachycardic, hypertensive, tachypneic. Saturating well on room air. ER Course: NSS x 1L Cefepime 2gm ALbuterol neb Ibuprofen 600mg po Tamiflu 75mg Allergies Allergy/AdvReac Type Severity Reaction Status Date / Time Rabbit Allergy Severe Anaphylaxis Verified 09/26/24 21:13 ciprofloxacin [From Cipro] Allergy Intermediate rash Verified 09/26/24 21:13 azithromycin Allergy Mild Rash Verified 09/26/24 21:13 benzonatate Allergy Mild rash Verified 09/26/24 21:13 clindamycin Allergy Mild rash Verified 09/26/24 21:13 codeine Allergy Mild rash Verified 09/26/24 21:13 hydrocodone Allergy Mild rash Verified 09/26/24 21:13 omeprazole Allergy Mild rash Verified 09/26/24 21:13 oxycodone Allergy Mild rash Verified 09/26/24 21:13 paroxetine Allergy Mild rash Verified 09/26/24 21:13 tamsulosin [From Flomax] Allergy Mild Rash Verified 09/26/24 21:13 carisoprodol Allergy Unknown Unknown Verified 09/26/24 21:13 cyclobenzaprine Allergy Unknown Unknown Verified 09/26/24 23:10 [From Flexeril] garlic Allergy Unknown Unknown Verified 09/26/24 21:13 grass pollen Allergy Unknown Unknown Verified 09/26/24 21:13 milk Allergy Unknown Unknown Verified 09/26/24 21:13 mold Allergy Unknown Unknown Verified 09/26/24 21:13 tree and shrub pollen Allergy Unknown Unknown Verified 09/26/24 21:13 levofloxacin [From Levaquin] AdvReac Intermediate tendonitis Verified 09/26/24 23:10 Home Medications Medication Instructions Recorded Confirmed Type albuterol sulfate 90 mcg/actuation 2 puffs inhalation Q4H PRN 10/08/18 09/26/24 Rx aerosol inhaler shortness of breath or wheezing #6.7 grams fluticasone propionate 50 2 sprays intranasal DAILY #9.9 10/08/18 09/26/24 Rx mcg/actuation nasal grams spray,suspension (Flonase Allergy Relief) inhalat.spacing dev,large mask #1 ea 11/02/18 09/07/24 History allopurinol 100 mg tablet 200 mg PO QAM 01/24/20 09/26/24 History rivaroxaban 20 mg tablet (Xarelto) 20 mg PO QAM 03/29/20 09/26/24 History cholecalciferol (vitamin D3) 25 1,000 units PO QAM 06/14/20 09/26/24 History mcg (1,000 unit) capsule red yeast rice 600 mg capsule 1,200 mg PO DAILY 09/07/20 09/26/24 History latanoprost 0.005 % eye drops 1 drp ophthalmic (eye) QPM 11/03/20 09/26/24 History (Xalatan) acetaminophen 500 mg tablet 1,000 mg PO BID PRN pain 08/29/21 09/26/24 History (Tylenol Extra Strength) carboxymethylcellulose sodium 1 % 1 drp ophthalmic (eye) QID 08/29/21 09/26/24 History eye liquid gel drops (Refresh Liquigel) lifitegrast 5 % eye drops in a 1 drp ophthalmic (eye) BID 08/29/21 09/26/24 History dropperette montelukast 10 mg tablet 10 mg PO QAM 11/01/21 09/26/24 History tiotropium bromide 1.25 2.5 mcg inhalation QAM 12/03/21 09/26/24 History mcg/actuation mist for inhalation (Spiriva Respimat) sodium chloride, sodium See Rx Instructions .Route 12/12/21 09/26/24 Rx bicarb-nasal rinse squeeze bottle .COMPLEX #50 ea with packet (Neilmed Sinus Rinse Complete with packet) Flutter Valve #1 ea 01/22/22 09/07/24 Rx losartan 50 mg tablet 50 mg PO DAILY 03/06/22 09/26/24 History nutritional supplement-fiber oral 1 ea PO DAILY 05/03/22 09/26/24 History liquid bupropion HCl 100 mg tablet,12 hr 150 mg PO BID 07/18/22 09/26/24 History sustained-release (Wellbutrin SR) hydrocortisone 2 % lotion 1 applic topical BID PRN Pain 07/18/22 09/26/24 History cyanocobalamin (vitamin B-12) 1,000 mcg PO DAILY 08/12/23 09/26/24 History 1,000 mcg capsule hydrocortisone 2.5 % topical cream 1 applic topical BID 08/12/23 09/26/24 History olopatadine 0.1 % eye drops 1 drp ophthalmic (eye) BID 08/12/23 09/26/24 History omega 6-yez-moz-fish oil 60 mg-90 1 cap PO DAILY 08/12/23 09/26/24 History mg-500 mg capsule (Fish Oil) sildenafil 50 mg tablet 50 mg PO DAILY PRN Dry Eyes 08/12/23 09/26/24 History vit C 250 mg-vit E 90 mg-zinc 40 1 tab PO BID 08/12/23 09/26/24 History mg-copper 1 qn-bdcrth-pmdfrw capsule (PreserVision AREDS-2) alfuzosin 10 mg tablet,extended 10 mg PO QAM 11/07/23 09/26/24 History release 24 hr (Uroxatral) multivitamin 1 tab PO DAILY 11/07/23 09/26/24 History naloxone 4 mg/actuation nasal 4 mg intranasal Q3M PRN opioid 11/27/23 09/26/24 Rx spray (Narcan) overdose #2 ea baclofen 5 mg tablet 5 mg PO BID #60 tabs 07/01/24 09/26/24 Rx tramadol 50 mg tablet 100 mg (2 x 50 mg) PO TID PRN pain 07/01/24 09/26/24 Rx #180 tabs amoxicillin 500 mg-potassium 1 tab PO BID #14 tabs 09/06/24 09/26/24 Rx clavulanate 125 mg tablet (Augmentin) prednisone 20 mg tablet 20 mg PO .COMPLEX #10 tabs 09/06/24 09/26/24 Rx budesonide-formoterol HFA 160 2 inh inhalation BID 09/26/24 09/26/24 History mcg-4.5 mcg/actuation aerosol inhaler Past Med/Surg History Problem List SOB (shortness of breath) (Acute) Influenza A (Acute) COVID-19 (Acute) Fever (Acute) Tachycardia (Acute) Pneumonia (Acute) Sepsis (Acute) Left wrist tendonitis History of pulmonary hypertension Cervicalgia Statin intolerance Pseudomonas aeruginosa colonization Bronchiectasis Cough Asthma daily and prn inh 2-3x per week Torticollis, acute Lumbar facet joint syndrome Foot pain, left Chronic SI joint pain Hiccups Moderate persistent asthma, uncomplicated Superficial varicosities Anxiety due to invasive procedure Slow urinary stream Nocturia Chronic sinusitis Normal left ventricular systolic function and wall motion Whipple's neuroma Sensorineural hearing loss (SNHL) of right ear with unrestricted hearing of left ear History of pulmonary embolism 01/2020 - unk etiology - on xarelto COPD (chronic obstructive pulmonary disease) Vertigo Pulmonary hypertension Chronic anticoagulation Xarelto therapy status post bilateral PE Spinal stenosis of lumbar region Inflammatory arthritis GERD (gastroesophageal reflux disease) Bilateral hip pain Bilateral lower extremity edema Left knee DJD Allergic rhinitis Hyperlipidemia (Chronic) unable to russell statin Hypertension (Chronic) Peripheral neuropathy (Chronic) Cervical facet syndrome (Chronic) PTSD (post-traumatic stress disorder) (Chronic) Migraines (Chronic) Medical History Bronchopneumonia due to Pseudomonas species Torticollis reason for prednisone/soma Lumbar facet joint syndrome Hx of vertigo no recent issues Peripheral neuropathy Nocturia Hx of migraines Hyperlipidemia GERD (gastroesophageal reflux disease) COPD (chronic obstructive pulmonary disease) Chronic sinusitis Chronic anticoagulation Xarelto therapy status post bilateral PE Arthralgia Allergic rhinitis Degenerative disc disease History of melanoma Depression PTSD (post-traumatic stress disorder) Anxiety Gout HTN (hypertension) Rheumatoid arthritis Pulmonary embolism, bilateral 01/2020 - unk etiology - on xarelto Carpal tunnel syndrome of left wrist Claustrophobia Tubular adenoma of colon hx Agent orange exposure Glaucoma Surgical History S/P trigger finger release lt thumb History of prior ablation treatment "nerves in my neck" History of non-cataract eye surgery History of tooth extraction History of colonoscopy History of melanoma excision H/O oral surgery H/O lumbosacral spine surgery 1995, L5 Family History Aunt Myocardial infarction Son Allergic rhinitis Father Hypertension Lung cancer cigar smoker Other No family history of adverse response to anesthesia No family history of bleeding disorder Denies family history of Ovarian cancer Prostate cancer Diabetes Coronary heart disease Depression Breast cancer Colorectal cancer Social History Smoking Status: Former smoker Tobacco Type: Cigarettes Age Started Using Tobacco: 18; Age Quit Using Tobacco: 50; packs per day: 0.5; Second Hand Exposure: No; Do You Dip or Chew Tobacco: No; Hx Alcohol Use: No Hx Substance Use: No Preferred Language: Guamanian Communication Ability: Effective Visual Impairment: Limited Hearing Ability: Hard of Hearing Take Out Waitress Required: No Beliefs That Will Affect Care: None marital status: Current Living Situation: Spouse Current Living Situation Comment: lives with current occupational status: retired How many Children do You have: 2 Feels Safe at Home: Yes Safety Concerns: Feels Safe At This Time Childhood Exposure to Second-Hand Smoke: Yes Diet: regular caffeine: Yes during the past year weight has: remained stable Dental Care, Regularly: No Physical Activity Frequency: Daily Seatbelt Use: always Sunscreen Use: No Assistive Devices: Denture - Upper, Denture - Lower and Glasses Review of Systems Review of Systems: All systems reviewed & are unremarkable except as noted in HPI & below Physical Exam Physical Exam: General: patient ill in appearance, answers questions appropriately but episodes of confusion and loses focus easily Skin: warm, dry, intact, no rashes or lesions HEENT: NC/AT, PERRL, EOMI, anicteric sclera, conjunctiva without injection, external ear normal to inspection and nontender, nares patent, moist mucus membranes, dentition intact, no oropharyngeal lesions, neck supple, trachea midline, no LAD, no thyromegaly, no JVD Heart: +S1/S2, regular, tachycardic, no m/r/g Lungs: crackles present in bilateral bases, mild end-expiratory wheezing Abd: +BS, soft, NT/ND, no masses/organomegaly/ascites Ext: warm, 2+ pulses in UE/LE bilaterally, no clubbing/cyanosis or edema Neuro: nonfocal, patient AA&O x 4, speech intact, no facial droop, moving all extremities on command with equal strength 5/5 Results & Data Results & Data Vital Signs (Past 12 Hours) Vital Signs Temp Pulse Pulse Resp BP BP Pulse Ox 09/26/24 19:33 112 H 31 H 161/90 H 94 09/26/24 19:15 117 H 25 H 162/84 H 100 09/26/24 19:00 161/92 H 09/26/24 18:34 112 H 09/26/24 18:23 39.2 C H 113 H 20 172/86 H 92 09/26/24 18:19 100 09/26/24 18:19 109 H 22 151/106 H 100 09/26/24 18:19 O2 Del Method 09/26/24 19:33 09/26/24 19:15 09/26/24 19:00 09/26/24 18:34 09/26/24 18:23 Room Air 09/26/24 18:19 Room Air 09/26/24 18:19 Room Air 09/26/24 18:19 Room Air Laboratory Results Laboratory Results WBC 9.97 K/ul (4.8-10.8) 09/26/24 18:52 RBC 5.12 M/uL (4.70-6.10) 09/26/24 18:52 Hgb 15.5 g/dl (14.0-18.0) 09/26/24 18:52 Hct 47.7 % (42.0-52.0) 09/26/24 18:52 MCV 93.2 fL (80.0-100.0) 09/26/24 18:52 MCH 30.3 pg (25.0-34.0) 09/26/24 18:52 MCHC 32.5 g/dL (32.0-36.0) 09/26/24 18:52 RDW Std Deviation 48.9 fL (36.4-46.3) H 09/26/24 18:52 RDW Coeff of Miguel 14.3 % (11.5-14.5) 09/26/24 18:52 Plt Count 186 K/uL (130-400) 09/26/24 18:52 MPV 8.8 fL (9.4-12.4) L 09/26/24 18:52 Immature Gran % (Auto) 0.3 % 09/26/24 18:52 Neut % (Auto) 79.9 % 09/26/24 18:52 Lymph % (Auto) 6.3 % 09/26/24 18:52 [place] % (Auto) 12.6 % 09/26/24 18:52 Eos % (Auto) 0.3 % 09/26/24 18:52 Baso % (Auto) 0.6 % 09/26/24 18:52 Neut # (Auto) 7.96 K/uL (1.40-6.50) H 09/26/24 18:52 Lymph # (Auto) 0.63 K/uL (1.20-3.40) L 09/26/24 18:52 [place] # (Auto) 1.26 K/uL (0.11-0.59) H 09/26/24 18:52 Eos # (Auto) 0.03 K/uL (0.00-0.50) 09/26/24 18:52 Baso # (Auto) 0.06 K/uL (0.00-0.20) 09/26/24 18:52 Immature Gran # (Auto) 0.03 K/uL (0.01-0.20) 09/26/24 18:52 PT 11.1 Seconds (9.0-12.0) 09/26/24 18:52 INR 1.0 (0.9-1.1) 09/26/24 18:52 APTT 32 Seconds (21-31) H 09/26/24 18:52 PTT Ratio 1.2 09/26/24 18:52 Sodium 134 mmol/L (136-145) L 09/26/24 18:52 Potassium 4.0 mmol/L (3.5-5.1) 09/26/24 18:52 Chloride 100 mmol/L (98-107) 09/26/24 18:52 Carbon Dioxide 26 mmol/L (21-32) 09/26/24 18:52 Anion Gap 8 (3-11) 09/26/24 18:52 BUN 16 mg/dl (6-23) 09/26/24 18:52 Creatinine 1.11 mg/dl (0.6-1.4) 09/26/24 18:52 Est Cr Clr Drug Dosing Not Reportable 09/26/24 18:52 eGFR 69.68 09/26/24 18:52 BUN/Creatinine Ratio 14.4 (10-20) 09/26/24 18:52 Glucose 123 mg/dl (70-99(Fasting)) H 09/26/24 18:52 Lactate 0.9 mmol/L (0.4-2.0) 09/26/24 18:52 Calcium 8.6 mg/dl (8.6-10.3) 09/26/24 18:52 Magnesium 1.8 mg/dl (1.7-2.4) 09/26/24 18:52 Total Bilirubin 0.8 mg/dl (0.2-1.0) 09/26/24 18:52 Direct Bilirubin 0.2 mg/dl (0-0.2) 09/26/24 18:52 AST 21 U/L (13-39) 09/26/24 18:52 ALT 21 U/L (7-52) 09/26/24 18:52 Alkaline Phosphatase 72 U/L (34-104) 09/26/24 18:52 Troponin I High Sens 5.6 pg/ml (0-20) 09/26/24 18:52 Total Protein 7.1 gm/dl (6.0-8.3) 09/26/24 18:52 Albumin 3.9 gm/dl (3.4-5.0) 09/26/24 18:52 Procalcitonin 0.09 ng/ml (0-0.5) 09/26/24 18:52 Urine Color Yellow 09/26/24 20:09 Urine Appearance Clear (Clear) 09/26/24 20:09 Urine pH 6.5 (4.5-7.5) 09/26/24 20:09 Ur Specific [place] 1.018 (1.000-1.030) 09/26/24 20:09 Urine Protein Trace (Negative) H 09/26/24 20:09 Urine Glucose (UA) Negative (Negative) 09/26/24 20:09 Urine Ketones 2+ (Negative) H 09/26/24 20:09 Urine Blood Trace (Negative) H 09/26/24 20:09 Urine Nitrite Negative (Negative) 09/26/24 20:09 Urine Bilirubin Negative (Negative) 09/26/24 20:09 Urine Urobilinogen Negative (Negative) 09/26/24 20:09 Ur Leukocyte Esterase Negative (Negative) 09/26/24 20:09 Urine WBC (Auto) 0-5 /hpf (0-5) 09/26/24 20:09 Urine RBC (Auto) 6-10 /hpf (0-2) H 09/26/24 20:09 U Hyaline Cast (Auto) 0-2 /lpf (0-2) 09/26/24 20:09 U Epithel Cells (Auto) 0-2 /hpf (0-2) 09/26/24 20:09 Urine Bacteria (Auto) None Seen (None Seen) 09/26/24 20:09 Urine Comment 09/26/24 20:09 SARS-CoV-2 (PCR) POSITIVE (Negative) A 09/26/24 19:48 Influenza Type A (PCR) Positive (Neg) A 09/26/24 19:48 Influenza Type B (PCR) Negative (Neg) 09/26/24 19:48 RSV (RT-PCR) Negative (Neg) 09/26/24 19:48 Impressions Chest X-Ray 09/26/24 18:28 Chest radiograph, one view History: Chest pain Comparison: 07/19/2024 Findings: Single AP view of the chest performed. No focal consolidation or pleural effusion. No pneumothorax. The cardiomediastinal silhouette is within normal limits. Normal pulmonary vascularity. No evidence for lymphadenopathy. No visualized bony or soft tissue abnormality. Impression: Normal chest radiograph Electronically signed by Kostas Nix 09-26-2024 7:33 PM Code Status & VTE Plan VTE Prophylaxis Plan VTE Prophylaxis will be ordered: Yes PG Care Time/CCT Total # of Minutes Spent Total Time Spent with Patient: Total time spent is greater than 50% in coordination of care (as documented) at patient's floor/unit and/or counseling patient: Coding Level of Care Code 91252 INT INP/OBS CARE 375MIN Diagnoses Influenza A J10.1 COVID-19 U07.1 Asthma J45.909 Pseudomonas aeruginosa colonization Z22.39 Pulmonary embolism, bilateral I26.99 Rheumatoid arthritis M06.9
[2024-09-26] MEDS ORDERED: BACLOFEN 10 MG TAB PO PRN (23:06)
[2024-09-26] MEDS ORDERED: ONDANSETRON INJ 2 MG/ML 2 ML VIAL IV PRN (23:06)
[2024-09-26] MEDS ORDERED: ALBUTEROL 0.5% NEB SOLN 2.5 MG/0.5 ML VIAL NEB PRN (23:06)
[2024-09-26] MEDS ORDERED: ACETAMINOPHEN 325 MG TAB PO PRN (23:06)
[2024-09-26] MEDS: Patient's HEIGHT &/or WEIGHT Needed STA (23:46)
[2024-09-26] MEDS: ALBUT/IPRATROP 3MG/0.5MG NEB 3 ML VIAL NEB SCH (23:57)
[2024-09-27] MEDS ORDERED: ALBUTEROL HFA 8 GM INHALER INH PRN (00:57)
[2024-09-27] MEDS: CEFEPIME 2000MG 2,000 MG/20 ML SYR IV SCH (02:27)
[2024-09-27] MEDS: IPRATROPIUM BROMIDE HFA INHALER INH SCH (07:14)
[2024-09-27] MEDS: ALBUTEROL HFA 8 GM INHALER INH SCH (07:14)
[2024-09-27] MEDS ORDERED: IPRATROPIUM BROMIDE/ALBUTEROL respimat INH INH SCH (09:00)
[2024-09-27] MEDS: CHOLECALCIFEROL 25 MCG (1000 UNITS) TAB PO SCH (09:44)
[2024-09-27] MEDS: OSELTAMIVIR PHOSPHATE 75 MG CAP PO SCH (09:45)
[2024-09-27] MEDS: RIVAROXABAN 20 MG TAB PO SCH (09:45)
[2024-09-27] MEDS: MONTELUKAST SODIUM 10 MG TABLET PO SCH (09:45)
[2024-09-27] MEDS: FLUTICASONE/VILANTEROL 100/25MCG 14 PUFFS/INHALER INH SCH (09:45)
[2024-09-27 10:12] LABS: Alanine Aminotransferase 18.0 U/L (7-52); Albumin Globulin Ratio 1.4 (0.9-2); Alkaline Phosphatase 64.0 U/L (34-104); Anion Gap 7.0 (3-11); Bilirubin,Total 0.6 mg/dl (0.2-1.0); Blood Urea Nitrogen 18.0 mg/dl (6-23); Calcium 8.3 mg/dl (8.6-10.3); Carbon Dioxide 26.0 mmol/L (21-32); Chloride 101.0 mmol/L (98-107); Creatinine Clr Calc Pharmacy 69.6 ml/min; Globulin 2.8 gm/dl (2.5-4.0); Glucose 259.0 mg/dl (70-99(Fasting)); Magnesium 2.2 mg/dl (1.7-2.4); Potassium 4.0 mmol/L (3.5-5.1); Sodium 134.0 mmol/L (136-145); Total Protein 6.6 gm/dl (6.0-8.3)
--- NOTE | 2024-09-27 11:14 | Electrocardiogram Report ---
Test Reason : Blood Pressure : */* mmHG Vent. Rate : 109 BPM Atrial Rate : 109 BPM P-R Int : 138 ms QRS Dur : 72 ms QT Int : 308 ms P-R-T Axes : 40 11 -3 degrees QTcB Int : 414 ms Sinus tachycardia Low voltage QRS Poor R wave progression, consider anterior DC vs. lead placement vs. LVH Abnormal ECG When compared with ECG of 24-Oct-2021 18:21, Non-specific change in ST segment in Inferior leads Confirmed by Parker Bennett [id number]) on 09/27/2024 11:14:54 AM Referred By: REFERRED SELF Confirmed By: Parker Bennett
--- NOTE | 2024-09-27 14:43 | Hospitalist Progress Note ---
Date of Service September 27, 2024 Assessment & Plan (1) Influenza A: (2) COVID-19: (3) Asthma: (4) Pseudomonas aeruginosa colonization: Plan This patient is a 74yo male P/W acute illness with fever, chills, cough, SOB, body aches and confusion x 3 days. Found to have Influenza A infection as well as Covid-19. CXR without pneumonia but is known to be colonized with Pseudomonas. He is not hypoxic but was febrile and tachycardic with sepsis on admission. #Influenza A/sepsis-with fever and tachycardia now resolved, procalcitonin negative. Feeling better -Maintain isolation precautions - Continue Tamiflu 75mg po BID x 5-day course - Continue Tylenol PRN fever or myalgias -Zofran PRN -Incentive spirometry -Flutter valve qid -Supplemental O2 as needed #[id number] CRP quite elevated at 12.7. Not hypoxic but with wheezing from acute asthma exacerbation. -Maintain isolation precautions - Start Remdesivir 200 mg IV x 1 now then 100 mg daily while hospitalized -Tylenol PRN -Supplemental O2 as needed -Patient anticoagulated on XARELTO for history of PE #Acute asthma exacerbation-with ongoing wheezing but not hypoxic - Continue Duonebs QID and albuterol q 2 hours -Continue Fluticasone/Vilanterol - Continue Solumedrol 40mg IV BID -Flutter Valve and IS #Hyponatremia-mild at 134 and stable from previous. Likely some mild dehydration from acute illness - Follow BMP in the morning - Should improve now that appetite is improving #Pseudomonas aeruginosa colonization-seen in the past by pulmonology and infectious disease and was not considered to need treatment. Procalcitonin negative, CXR negative for pneumonia. MRSA swab of the nose here negative -Check sputum culture-pending -Cefepime 2gm IV q 8 hours was started but can be discontinued at this time #History of PE -Continue Xarelto #Seronegative Polyarthritis/Gout -Continue Allopurinol #Mental Health -Continue Bupropion #HTN-blood pressure is controlled - Can resume home losartan DVT prophylaxis-Xarelto Disposition-continued stay but can downgrade to medical/surgical unit as sepsis is resolved. Improving. PT/OT evaluations placed as patient is a bit unsteady on his feet as per nursing Admission and Anticipated Discharge Date Admission Date: September 26, 2024 Subjective Patient reports feeling better, still with a cough but not feeling as weak. Denies chest pains or shortness of breath. Telemetry with normal sinus rhythm with rates in the 70s to 80s He reports he is still feeling sweaty. Physical Exam Constitutional: WD/WN, vitals as above Neck: trachea midline, no thyromegaly Respiratory: normal respiratory effort and + cough Auscultation: + wheezes (Bilateral diffuse expiratory); no rales and no rhonchi Cardiovascular: RRR, no murmur, no edema Chest (Breasts): Chest: normal inspection of chest Gastrointestinal (Abdomen): normal bowel sounds, soft, nontender, no hepatosplenomegaly Musculoskeletal: Extremities: extremities normal to inspection; no cyanosis and no clubbing Skin: no rashes, warm and dry Neurologic: moves all extremities and awake; no focal motor deficits Psychiatric: A+Ox3, euthymic affect Lymphatic: no lymphedema Results & Data Results & Data Vital Signs (Past 12 Hours) Vital Signs Temp Pulse Pulse Resp BP Pulse Ox O2 Del Method 09/27/24 11:54 72 16 94 Room Air 09/27/24 11:47 36.8 C 80 20 128/74 96 Room Air 09/27/24 08:09 Room Air 09/27/24 07:57 81 09/27/24 07:43 36.7 C 89 18 131/85 95 Room Air 09/27/24 07:14 76 16 94 Room Air 09/27/24 03:37 36.7 C 88 20 153/92 H 94 Room Air Laboratory Results BMP, LFTs, CRP reviewed PG Care Time/CCT Total # of Minutes Spent Total Time Spent with Patient: Total time spent is greater than 50% in coordination of care (as documented) at patient's floor/unit and/or counseling patient: Coding Level of Care Code 55400 SUB INP/OBS CARE 3/50MIN Diagnoses Influenza A J10.1 COVID-19 U07.1 Asthma J45.909 Pseudomonas aeruginosa colonization Z22.39
[2024-09-27] MEDS: REMDESIVIR 200 MG in SODIUM CHLORIDE 0.9% 210 ML IV ONE (15:49)
[2024-09-27] MEDS: LATANOPROST 0.005% OP SOLN 2.5 ML BTL OP SCH (20:08)
[2024-09-28 08:13] VITALS: TEMP 98.1
[2024-09-28 10:20] VITALS: RESP 16
[2024-09-28 10:36] VITALS: O2SAT 94
--- NOTE | 2024-09-28 11:15 | Discharge Summary ---
Discharge Summary Date of Service September 28, 2024 Principal Dx & Hospital Course #1 = Principal Diagnosis (1) Influenza A: (2) COVID-19: (3) Asthma: (4) Pseudomonas aeruginosa colonization: Plan This patient is a 74yo male P/W acute illness with fever, chills, cough, SOB, body aches and confusion x 3 days. Found to have Influenza A infection as well as Covid-19. CXR without pneumonia but is known to be colonized with Pseudom onas. He is not hypoxic but was febrile and tachycardic with sepsis on admission. #Influenza A/sepsis-with fever and tachycardia now resolved, procalcitonin negative. Feeling better. Sputum culture no growth to date, blood cultures remain negative -Maintain isolation precautions - Continue Tamiflu 75mg po BID x 5-day course after discharge - Continue Tylenol PRN fever or myalgias -Incentive spirometry -Flutter valve qid - He passed a two-step walking test prior to discharge indicating no supplemental O2 needed #[id number] CRP quite elevated at 12.7 and improved down to 10.09 on the day of discharge. Not hypoxic but with wheezing from acute asthma exacerbation. -Maintain isolation precautions after discharge - He received remdesivir 200 mg IV x 1 but did not need to continue the treatment as he was much improved and stable for discharge to home - I considered prescribing Paxlovid on discharge but it interacts with Xarelto and it is more important for him to take the Xarelto then Paxlovid at this point given his high risk for PE with having COVID and a history of VTE -Tylenol PRN -Patient anticoagulated on XARELTO for history of PE #Acute asthma exacerbation-with ongoing wheezing but not hypoxic - Continue Duonebs QID and albuterol q 2 hours -Continue Fluticasone/Vilanterol - Received Solumedrol 40mg IV BID while here and will send home on a prednisone taper 40 mg daily x 2 days and decrease by 10 mg every 2 days until gone -Flutter Valve and IS #Hyponatremia-mild at 134 and stable from previous. 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 Procalcitonin negative, CXR negative for pneumonia. MRSA swab of the nose here negative. Sputum culture still pending at the time of discharge but no pneumonia on chest x-ray so would not likely treat with antibiotics even if positive for Pseudomonas again - He did receive a few doses of IV cefepime but this was discontinued #History of PE -Continue Xarelto #Seronegative Polyarthritis/Gout -Continue Allopurinol #Mental Health -Continue Bupropion #HTN-blood pressure is controlled - Continue home losartan DVT prophylaxis-Xarelto Disposition-discharged to home, evaluated by PT and OT who felt he was stable for discharge to home Notes For Next Care Provider Medication Changes From Visit Added Tamiflu, prednisone taper Admission HPI Per Admitting Provider Hadley Hunt is a 74yo male with history of PE on Xarelto anticoagulation, Asthma with chronic cough, possible Pseudomonas colonization, HTN, and seronegative polyarthritis presenting with fever, chills, body aches, cough and confusion. Patient was recently on an [place] cruise. Approximately 3 days ago he developed cough productive for yellow sputum, congestion, fever, chills, body aches and fatigue. Patient feels that he can't concentrate well. No vomiting, diarrhea, abdominal pain or urinary complaints. In the ER patient febrile, tachycardic, hypertensive, tachypneic. Saturating well on room air. ER Course: NSS x 1L Cefepime 2gm ALbuterol neb Ibuprofen 600mg po Tamiflu 75mg Discharge Exam Constitutional WD/WN, vitals as above Neck trachea midline, no thyromegaly Respiratory normal respiratory effort and + cough Auscultation: + wheezes (Bilateral mild expiratory); no rales and no rhonchi Cardiovascular RRR, no murmur, no edema Chest (Breasts) Chest: normal inspection of chest Musculoskeletal Extremities: extremities normal to inspection; no cyanosis and no clubbing Skin no rashes, warm and dry Neurologic moves all extremities and awake; no focal motor deficits Psychiatric A+Ox3, euthymic affect Lymphatic no lymphedema Discharge Plan Discharge Items Patient Disposition: Home - Self-Care Reason For Visit: INFLUENZA + COVID Discharge Diagnosis: Influenza A COVID-19 Acute asthma exacerbation Condition on Discharge: Fair Activity: As commented below Lifting: Gradually increase as tolerated Bathing: No limitations Exercise/Sports: Gradually increase as tolerated Driving/Machine Use: No limitations Non-emergency contact: Primary Care Provider Call non-emergency contact if: you have any medication questions and your symptoms worsen Follow-up/Referrals: Loly Alvarez CRNP [Primary Care Provider] - (Follow-up within 1-2 weeks.) Diet: Regular Addtl Attending Provider Instructions: Please finish out 3 more days of the Tamiflu for influenza. You received IV Remdesivir for COVID-19 but unfortunately I cannot prescribe you the Paxlovid antiviral pill for COVID-19 as it interacts with your Xarelto. Because COVID puts you at much higher risk for having a blood clot, it is more important for you to take the Xarelto than the Paxlovid at this time. Please finish out the prednisone taper for your asthma exacerbation. Continue on your rescue inhalers for wheezing and cough as needed. If your symptoms worsen or you become more short of breath, develop high fevers or have any other acute concerns, please call your doctor or return to the ED. Pending Studies at Discharge: Yes (Sputum culture, blood cultures) Stand-Alone Forms: My [facility], Smoking Cessation Medications and DC Order Prescriptions: New oseltamivir [Tamiflu] 75 mg Capsule 75 mg PO BID Qty: 6 0RF prednisone 10 mg tablet 40 mg PO DAILY Qty: 20 0RF Rx Instructions: X 2 days then decrease by 10 mg every 2 days until gone Continued baclofen 5 mg tablet 5 mg PO BID Qty: 60 2RF tramadol 50 mg tablet 100 mg PO TID PRN (Reason: pain) Qty: 180 0RF Xarelto 20 mg tablet 20 mg PO QAM Rx Instructions: must administer with evening meal latanoprost [Xalatan] 0.005 % drops 1 drp OP QPM Neilmed Sinus Rinse Complete Packet With Rinse Device See Rx Instructions .Route .COMPLEX Qty: 50 3RF Rx Instructions: use daily; hydrocortisone 2 % lotion 1 applic topical BID PRN (Reason: Pain) nutritional supplement-fiber Liquid 1 ea PO DAILY losartan 50 mg tablet 50 mg PO DAILY (DME) Flutter Valve Device See Rx Instructions .MEDSUPPLY Qty: 1 0RF Rx Instructions: As directed (DME) inhalat.spacing dev,large mask spacer See Dose Instructions .ROUTE .MEDSUPPLY Qty: 1 Rx Instructions: As directed albuterol sulfate 90 mcg/actuation HFA aerosol inhaler 2 puffs inhalation Q4H PRN (Reason: shortness of breath or wheezing) Qty: 6.7 0RF fluticasone propionate [Flonase Allergy Relief] 50 mcg/actuation spray,suspension 2 sprays INTNAS DAILY Qty: 9.9 0RF red yeast rice 600 mg capsule 1,200 mg PO DAILY Rx Instructions: give with meal/snack carboxymethylcellulose sodium [Refresh Liquigel] 1 % drops, liquid gel 1 drp ophthalmic (eye) QID lifitegrast 5 % dropperette 1 drp ophthalmic (eye) BID Rx Instructions: administer approximately 12 hours apart montelukast 10 mg tablet 10 mg PO QAM Spiriva Respimat 1.25 mcg/actuation mist 2.5 mcg inhalation QAM sildenafil 50 mg tablet 50 mg PO DAILY PRN (Reason: Dry Eyes) Rx Instructions: administer 30 minutes to 4 hours before activity olopatadine 0.1 % drops 1 drp ophthalmic (eye) BID Rx Instructions: separate doses by at least 6-8 hours hydrocortisone 2.5 % cream 1 applic topical BID omega [id number]-[id number]-fish oil [Fish Oil] 60-90-500 mg capsule 1 cap PO DAILY PreserVision AREDS-2 250-90-40-1 mg capsule 1 tab PO BID cyanocobalamin (vitamin B-12) 1,000 mcg capsule 1,000 mcg PO DAILY naloxone [Narcan] 4 mg/actuation spray,non-aerosol 4 mg intranasal Q3M PRN (Reason: opioid overdose) Qty: 2 0RF Rx Instructions: spray 1 dose into ONE nostril; alternate nostrils w each dose until help arrives allopurinol 100 mg Tablet 200 mg PO QAM cholecalciferol (vitamin D3) 1,000 unit capsule 1,000 units PO QAM acetaminophen [Tylenol Extra Strength] 500 mg tablet 1,000 mg PO BID PRN (Reason: pain) bupropion HCl [Wellbutrin SR] 100 mg tablet sustained-release 12 hr 150 mg PO BID multivitamin Tablet 1 tab PO DAILY alfuzosin [Uroxatral] 10 mg tablet extended release 24 hr 10 mg PO QAM Rx Instructions: administer after the same meal each day budesonide-formoterol 160-4.5 mcg/actuation HFA aerosol inhaler 2 inh inhalation BID Rx Instructions: RINSE MOUTH AFTER USE Discontinued prednisone 20 mg tablet 20 mg PO .COMPLEX Qty: 10 0RF Rx Instructions: PER PT "NEVER TOOK THIS MED" 20 mg orally 2 tab daily for 5 days; will take with him on vacation amoxicillin-pot clavulanate [Augmentin] 500-125 mg tablet 1 tab PO BID Qty: 14 0RF Rx Instructions: PER PT "NEVER TOOK MED" will take with him on vacation Discharge Orders: Discharge Order (Routine); Ordered 09/28/24 Ordered By: Susan Toro Admission Data Admit Date/Time: 09/26/24 21:40 Attending Provider: Susan Toro Admit Provider: Becki Quiros Primary Care Provider: Loly Alvarez. Other Providers: Becki Quiros; [facility] Hospital Stay Data Consultations 09/26/24 21:09 ED Decision to Admit Stat Pending Results Patient Have Any Pending Studies at Discharge: Yes (Sputum culture, blood cultures) Discharge Instructions Given to Patient (Per Discharging Provider) Please finish out 3 more days of the Tamiflu for influenza. You received IV Remdesivir for COVID-19 but unfortunately I cannot prescribe you the Paxlovid antiviral pill for COVID-19 as it interacts with your Xarelto. Because COVID puts you at much higher risk for having a blood clot, it is more important for you to take the Xarelto than the Paxlovid at this time. Please finish out the prednisone taper for your asthma exacerbation. Continue on your rescue inhalers for wheezing and cough as needed. If your symptoms worsen or you become more short of breath, develop high fevers or have any other acute concerns, please call your doctor or return to the ED. Total Time Total Time Spent Total Time Spent (In Minutes): 35 minutes Total Time Includes: Examination of the Patient, Discharge Planning and Medication Reconciliation Coding Level of Care Code 21659 INP/OBS DISCH >30 MIN Diagnoses Influenza A J10.1 COVID-19 U07.1 Asthma J45.909 Pseudomonas aeruginosa colonization Z22.39
[2024-09-28] MEDS ORDERED: LIFITEGRAST 5% OP SCH (11:18)
[2024-09-28 11:25] VITALS: BP 151/106; PULSE 109
[2024-09-28] MEDS: FLUTICASONE PROPIONATE NA SPR 16 GM BTL NAE SCH (12:21)
[2024-09-28] MEDS: LOSARTAN POTASSIUM 50 MG TAB PO SCH (12:21)
[2024-09-28] MEDS ORDERED: ARTIFICIAL TEARS OP SCH (13:00)
[2024-09-28] MEDS ORDERED: REMDESIVIR 100 MG in SODIUM CHLORIDE 0.9% 230 ML IV SCH (15:00)
[2024-09-29] MEDS ORDERED: CYANOCOBALAMIN (B-12) 500 MCG TABLET PO SCH (09:00)
[2024-09-29] MEDS ORDERED: MULTIVITAMIN TAB PO SCH (09:00)
== END 2024-09-28 14:02 | disposition home or self-care (01) | DRG 871 ==
LOC: ED 18:18 → 2E 21:40 → SUATTDRO 21:40 → 2E 22:47